=== PATIENT | male | born 1960 | race Caucasian/White ===

== ENCOUNTER → 2018-07-06 07:17 | Outpatient (CLI) | payer OTHER, SELFPAY ==
[2018-07-06 08:06] LABS: Add Manual Diff / Slide Review NO; Basophils Absolute Auto 0 /uL (0-100); Basophils Percent Auto 0.4 % (0-2); Eosinophils Absolute Auto 100 /uL (0-450); Eosinophils Percent Auto 2.6 % (2-4); Lymphocytes Absolute Auto 1400 /uL (1100-4500); Lymphocytes Percent Auto 29.5 % (25-40); Mean Corpuscular HGB Conc 33.4 % (30-36); Mean Corpuscular Hemoglobin 31.3 PG (26-34); Mean Corpuscular Volume 93.6 fL (80-100); Monocytes Absolute Auto 500 /uL (0-900); Monocytes Percent Auto 11.5 % (3-14); Neutrophils Absolute Auto 2600 /uL (1500-7000); Platelet Count 210 X10^3/uL (150-400); Red Blood Cell Count 4.81 X10^6/uL (4.5-5.9); Red Cell Distribution Width 12.7 % (11.6-14.8); White Blood Cell Count 4.6 X10^3/uL (4.5-11.0)
[2018-07-06 08:14] LABS: Alanine Aminotransferase 55 IU/L (21-72); Albumin 4.8 g/dL (3.5-5.0); Albumin Globulin Ratio 1.3 (1.0-2.8); Alkaline Phosphatase 79 U/L (38-126); Aspartate Aminotransferase 51 IU/L (17-59); BUN Creatinine Ratio 23.8 (6-22); Bilirubin Total 0.5 mg/dL (0.2-1.3); Blood Urea Nitrogen 19 mg/dL (9-20); Calcium 9.9 mg/dL (8.4-10.2); Carbon Dioxide 28 mmol/L (22-32); Chloride 102 mmol/L (98-107); Cholesterol 131 mg/dL (140-199); Estimated Glomerular Filt Rate > 60.0 mL/min (>60); Globulin 3.8 g/dL (1.7-4.1); Glucose 96 mg/dL (70-100); HDL Cholesterol 37 mg/dL (40-60); HEMOLYSIS < 15 (0-50); LDL Cholesterol Calculated 82 mg/dL (<100); Potassium 4.6 mmol/L (3.4-5.1); Sodium 139 mmol/L (137-145); Total Protein 8.6 g/dL (6.3-8.2); Triglycerides 61 mg/dL (35-150)
[2018-07-06 08:42] LABS: Prostate Specific Antigen 0.254 ng/mL (0.10-4.00)
[2018-07-06 09:32] LABS: Creatinine Urine Random 98.8 mg/dL
[2018-07-06 09:37] LABS: Microalbumin Urine Random < 0.6 mg/dL (0-1.6)
== END ==
PROVIDERS: Family Provider Family Medicine; PCP Family Medicine; Visit Provider Family Medicine
DX: E11.8 Type 2 diabetes mellitus with unspecified complications (principal); I10 Essential (primary) hypertension; I25.2 Old myocardial infarction; I25.5 Ischemic cardiomyopathy; I50.20 Unspecified systolic (congestive) heart failure; Z12.5 Encounter for screening for malignant neoplasm of prostate; Z13.0 Encounter for screening for diseases of the blood and blood-forming organs and certain disorders involving the immune mechanism; Z13.220 Encounter for screening for lipoid disorders; Z13.29 Encounter for screening for other suspected endocrine disorder
CPT/HCPCS: 36415; 80053; 80061; 82043; 82570; 84153; 84443; 85025

== ENCOUNTER → 2019-06-29 12:19 | Outpatient (CLI) | payer OTHER, SELFPAY ==
[2019-06-29 13:12] LABS: BUN Creatinine Ratio 28.8 (6-22); Blood Urea Nitrogen 23 mg/dL (9-20); Calcium 9.8 mg/dL (8.4-10.2); Carbon Dioxide 27 mmol/L (22-32); Chloride 99 mmol/L (98-107); Estimated Glomerular Filt Rate > 60.0 mL/min (>60); Glucose 95 mg/dL (80-110); HEMOLYSIS 17 (0-50); Sodium 136 mmol/L (137-145)
== END ==
PROVIDERS: Family Provider Family Medicine; PCP Family Medicine; Visit Provider Internal Medicine Cardiovascular Disease
DX: I25.5 Ischemic cardiomyopathy (principal)
CPT/HCPCS: 36415; 80048

== ENCOUNTER → 2020-05-28 11:28 | Outpatient (CLI) | payer OTHER, SELFPAY ==
[2020-05-28 12:48] LABS: Alanine Aminotransferase 39 IU/L (<50); Albumin 4.5 g/dL (3.5-5.0); Albumin Globulin Ratio 1.3 (1.0-2.8); Alkaline Phosphatase 91 U/L (38-126); Aspartate Aminotransferase 43 IU/L (17-59); BUN Creatinine Ratio 27.9 (6-22); Bilirubin Total 0.4 mg/dL (0.2-1.3); Blood Urea Nitrogen 24 mg/dL (9-20); Calcium 9.3 mg/dL (8.4-10.2); Carbon Dioxide 29 mmol/L (22-32); Chloride 99 mmol/L (98-107); Estimated Glomerular Filt Rate > 60.0 mL/min (>60); Globulin 3.4 g/dL (1.7-4.1); Glucose 98 mg/dL (80-110); HEMOLYSIS < 15 (0-50); Potassium 4.6 mmol/L (3.4-5.1); Sodium 135 mmol/L (137-145); Total Protein 7.9 g/dL (6.3-8.2)
== END ==
PROVIDERS: Family Provider Family Medicine; PCP Family Medicine; Referring Provider Family Medicine; Visit Provider Nurse Practitioner
DX: Z51.81 Encounter for therapeutic drug level monitoring (principal)
CPT/HCPCS: 36415; 80053

== ENCOUNTER → 2020-08-08 09:14 | Outpatient (CLI) | payer OTHER, SELFPAY ==
[2020-08-08 11:43] LABS: COVID19 -Nasal RAPID Negative (Negative)
== END ==
PROVIDERS: Family Provider Family Medicine; PCP Family Medicine; Visit Provider Surgery
DX: Z01.812 Encounter for preprocedural laboratory examination (principal); Z20.822 Contact with and (suspected) exposure to COVID-19
CPT/HCPCS: 87635; C9803

== ENCOUNTER 2020-08-11 07:19 | Day surgery (SDC) | payer OTHER, SELFPAY ==
[2020-08-11 07:46] VITALS: BP 124/77; PULSE 70; RESP 16; TEMP 36.7; O2SAT 100; BMI 21.2
[2020-08-11] MEDS: LACTATED RINGERS 1,000 ML 200 ML IV (07:54)
--- NOTE | 2020-08-11 08:23 | PM.HP.1 ---
History of Present Illness History of Present Illness Date Patient Seen: 08/11/20 Time Patient Seen: 08:24 Chief complaint: SCREENING COLONOSCOPY Narrative: The patient presents for colorectal sreening. He had a previous colonoscopy 5 years ago that was significant for polyps.. No personal or family history of colon cancer. On further history denies any recent gastrointestinal symptoms. No nausea, vomiting, abdominal pain, loss of appetite, unexplained weight loss, change in bowel habits, diarrhea, constipation, melena, hematochezia, or bright red blood per rectum. Patient History Medical History Essential hypertension Hx of myocardial infarction Ischemic cardiomyopathy Polyp of colon (07/08/17) Systolic CHF Family & Social History Family History Father Heart disease Stroke Mother Age: 81 Heart disease Hypertension High cholesterol Sister Age: 57 Hypertension Social History: household members spouse other boating Tobacco & Substance use: Smoking Status Never smoker alcohol intake current alcohol intake frequency a few times a week Substance Use Type does not use Meds Home Medications and Allergies Home Medications Medication Instructions Recorded Confirmed Type [MAINTENANCE C] #0 10/11/16 07/30/20 History aspirin 81 mg PO DAILY #0 07/13/17 07/30/20 History metoprolol succinate 25 mg PO BID #0 tab 07/14/18 07/30/20 History tablet,extended release 24 hr fluticasone propionate 2 spray INTRANASAL BID #1 units 01/16/19 07/30/20 Rx simvastatin 40 mg tablet 40 mg PO BEDTIME #30 tab 02/20/19 07/30/20 Rx losartan 25 mg tablet 50 mg PO DAILY tab 07/27/19 07/30/20 History sodium,potassium,mag sulfates 17.5 177 ml PO DAILY #354 ml 07/31/20 Rx gram-3.13 gram-1.6 gram oral soln acetaminophen [Tylenol] 325 mg PO QID PRN 08/11/20 08/11/20 History loratadine 10 mg PO DAILY 08/11/20 08/11/20 History phenylephrine HCl 10 mg PO Q4-6H PRN 08/11/20 08/11/20 History Allergies Allergy/AdvReac Type Severity Reaction Status Date / Time animal dander Allergy Mild Verified 08/11/20 07:31 grass pollen Allergy Mild Verified 08/11/20 07:31 house dust Allergy Mild Verified 08/11/20 07:31 Review of Systems Review of Systems ROS: Yes All systems reviewed with the patient and are negative except as otherwise documented Exam Vital Signs (past 8 hours): - 08/11/20 07:46 Temperature 98.1 F Pulse Rate 70 Respiratory Rate 16 Blood Pressure 124/77 Pulse Oximetry 100 Oxygen Delivery Method Room Air Narrative Exam Narrative: General-no acute distress, well nourished adult male HEENT-moist mucous membranes, no scleral icterus Neck-supple, no lymphadenopathy Chest- non labored respirations, clear to auscultation bilaterally Cardiac-regular rate no peripheral edema Abdomen-soft, nontender, non distended Extremities-warm, well perfused Neurological-alert and oriented, no focal deficits Assessment & Plan Assessment & Plan narrative: The patient requires colorectal screening and colonoscopy is recommended. Technical details were discussed. Risks, benefits, alternatives explained. Risks including but not limited to myocardial infarction, aspiration, bleeding, pain, missed lesion, incomplete examination, need for further radiographic studies, colonic perforation, and need for major abdominal surgery were discussed. All questions were answered to their satisfaction, and they are in agreement with this plan.
[2020-08-11] MEDS: fentaNYL 250 MCG/5 ML INJ IV (08:34)
[2020-08-11] MEDS: MIDAZOLAM 5 MG/5 ML VIAL IV (08:57)
--- NOTE | 2020-08-11 08:59 | PM.OP.ENDO ---
Operative Date/Time/Diagnoses Date of procedure: 08/11/20 Time of procedure: 08:59 Pre-op diagnosis: personal history of colonic polyps Post-op diagnosis: same Procedure & Clinicians Study performed: colonoscopy Same procedure as scheduled: Yes Indications: 59M last colonoscopy 5 yrs ago history of colonic polyps Surgeon: Lee Enriquez Procedure Notes Procedure in detail: Medications: Conscious sedation using 7mg IV midazolam and 150mcg IV of fentanyl The history and physical was performed/updated and the patient is ASA class is 2. The procedure was discussed in detail with the patient. Potential risks complications including infection, bleeding, missed diagnosis, perforation, need for surgery, and were explained. Their questions were answered and informed consent was obtained. Patient was brought to the procedure room and placed standard monitoring equipment. The patient's vital signs were monitored continuously throughout the entire procedure. Prior to starting time-out was performed. The patient was placed in the left lateral recumbent position. Procedural sedation was administered. Examination began with a thorough inspection of the perianal area there was no evidence of fissures, fistulae, external hemorrhoids or cutaneous malignancy. The colonoscopy scope was then placed into the anal canal and was advanced to the cecum, which was identified by the ileocecal valve, the appendiceal orifice and the confluence of the taenia. The scope was then slowly withdrawn examining colon thoroughly in all directions, irrigating it of any residual stool. No masses or polyps Grade 1 internal hemorrhoids The patient tolerated the procedure well. They will be discharged once criteria are met. The prep was of good/excellent quality. The withdrawl time was 7 minutes. The sedation time was 27 minutes. Specimen(s): none sent Complications: none Impression: Normal colonoscopy Post-procedure Recommendations: Colonscopy in 10 years Disposition: same day surgery
[2020-08-11 09:08] VITALS: BP 103/72; PULSE 61; RESP 15; O2SAT 96
--- NOTE | 2020-08-11 09:12 | SUR.PHASEI ---
Pt arrived, easily aroused, c/o 06/29 abdominal pain, abdomen semi-soft, pt placed on L side with knees to chest.
[2020-08-11 09:13] VITALS: BP 97/70; PULSE 61; RESP 16; TEMP 36.6; O2SAT 96
--- NOTE | 2020-08-11 09:17 | SUR.PHASEI ---
Abdomen soft, discomfort gone, pt sitting up drinking juice.
[2020-08-11 09:25] VITALS: BP 104/64; PULSE 62; RESP 17; TEMP 36.4; O2SAT 97
[2020-08-11 09:54] VITALS: BP 107/63; PULSE 63; RESP 16; TEMP 36.6; O2SAT 97
== END 2020-08-11 09:50 | disposition home or self-care (01) ==
PROVIDERS: Family Provider Family Medicine; PCP Family Medicine; Referring Provider Family Medicine; Visit Provider Surgery
PROC: 0DJD8ZZ Inspection of Lower Intestinal Tract, Via Natural or Artificial Opening Endoscopic (ICD-10-PCS; CPT 45378; principal; 2020-08-11 08:30)
DX: Z12.11 Encounter for screening for malignant neoplasm of colon (principal); Z86.010 Personal history of colon polyps; I10 Essential (primary) hypertension; I25.2 Old myocardial infarction; K64.0 First degree hemorrhoids
CPT/HCPCS: 45378; 99152; 99153; J2250; J3010

== ENCOUNTER → 2020-12-15 09:39 | Outpatient (CLI) | payer OTHER, SELFPAY ==
[2020-12-15 11:23] LABS: Cholesterol 134 mg/dL (140-199); HDL Cholesterol 48 mg/dL (40-60); LDL Cholesterol Calculated 76 mg/dL (<100); Triglycerides 51 mg/dL (35-150)
== END ==
PROVIDERS: Family Provider Family Medicine; PCP Family Medicine; Referring Provider Internal Medicine Cardiovascular Disease; Visit Provider Internal Medicine Cardiovascular Disease
DX: I25.5 Ischemic cardiomyopathy (principal)
CPT/HCPCS: 36415; 80061

== ENCOUNTER → 2021-11-18 08:15 | Outpatient (CLI) | payer OTHER, SELFPAY ==
[2021-11-18 08:56] LABS: Alanine Aminotransferase 28 IU/L (<50); Albumin 4.4 g/dL (3.5-5.0); Albumin Globulin Ratio 1.4 (1.0-2.8); Alkaline Phosphatase 71 U/L (38-126); Aspartate Aminotransferase 38 IU/L (17-59); BUN Creatinine Ratio 21.2 (6-22); Bilirubin Total 0.4 mg/dL (0.2-1.3); Blood Urea Nitrogen 18 mg/dL (9-20); Calcium 9.7 mg/dL (8.4-10.2); Carbon Dioxide 29 mmol/L (22-32); Chloride 104 mmol/L (98-107); Cholesterol 128 mg/dL (140-199); Estimated Glomerular Filt Rate > 60 mL/min (>60); Globulin 3.1 g/dL (1.7-4.1); Glucose 96 mg/dL (80-110); HDL Cholesterol 47 mg/dL (40-60); HEMOLYSIS < 15 (0-50); LDL Cholesterol Calculated 68 mg/dL (<100); Potassium 4.4 mmol/L (3.4-5.1); Sodium 138 mmol/L (137-145); Total Protein 7.5 g/dL (6.3-8.2); Triglycerides 64 mg/dL (35-150)
[2021-11-18 09:12] LABS: Creatinine Urine Random 123.6 mg/dL
[2021-11-18 09:17] LABS: Microalbumi Creatinin Ratio Ur 6.4 ug/mg CR (<30); Microalbumin Urine Random 0.8 mg/dL (0-1.6)
[2021-11-18 09:24] LABS: Prostate Specific Antigen 0.284 ng/mL (0.10-4.00)
== END ==
PROVIDERS: Family Provider Family Medicine; PCP Family Medicine; Referring Provider Family Medicine; Visit Provider Family Medicine
DX: Z12.5 Encounter for screening for malignant neoplasm of prostate (principal); I10 Essential (primary) hypertension
CPT/HCPCS: 36415; 80053; 80061; 82043; 82570; 84153

== ENCOUNTER 2022-03-12 08:15 | Outpatient (RCR) | payer OTHER, SELFPAY ==
--- NOTE | 2022-01-01 19:51 | PT.OIE ---
Current Diagnoses Muscle weakness (generalized) (01/01/22) Pain in right hand (01/01/22) Pain in left hand (01/01/22) Past Medical History (Last Reviewed 08/11/20 @ 08:24 by Lee Enriquez MD) Essential hypertension Hx of myocardial infarction Ischemic cardiomyopathy Polyp of colon (07/08/17) Systolic CHF Visit Care Team Role Provider Type Azalia Winters MD Attending Provider Physician Family Provider Primary Care Provider Referring Provider Specialty: Family Practice Address: [address] [place] [address], [facility] Email: [email or web address] Physical Therapy Initial Evaluation PT-OP-A Visit Information Start: 12/24/21 17:41 Freq: Status: Active Protocol: Document 01/01/22 08:17 LRN (Rec: 01/01/22 09:09 LRN [id number]) Out-Patient Physical Therapy Visit Information Visit Information Visit Type Initial Evaluation Visit Start Time 08:15 Visit Stop Time 09:09 Total Visit Minutes 49 Visit Number 1 Evaluation Information Evaluation Date 01/01/22 Precautions Precautions Controlled HBP, heart attack f /b open heart surgery bypass , stiff neck at times. PT-OP-B Current Condition Start: 12/24/21 17:41 Freq: Status: Active Protocol: Document 01/01/22 08:17 LRN (Rec: 01/01/22 09:09 LRN [id number]) Current Condition History of Current Condition Onset Date 2 yrs pain that worsened 6 months ago. Current Complaints Pain in fátima thumbs in the web space. History of Current Condition Fátima hand pain a couple years ago of insidious onset. Thinks it was just from general use from working in yard and around the house. 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 R hand started to have pain 9-10 months after the L hand. Does neck stretches in the morning. L hand has been getting worse. Pt reports numbness and tingling occasionally in hands on waking in morning, numbness and tingling daily driving to work. He normalizes sensation by moving fingers and move wrist. Prior Treatments and Tests None Treatment Goals Patient/Caregiver Goals Pt goal is to have program to do to help alleviate the pain and to identify and correct his problem. Pt has pain with gripping of objects. 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 Has changed way to do things to minimize the pain. Prior Functional Status Baseline Function- ADL's Independent Baseline Function- Mobility Independent Baseline Function- Other Able to bulk picker leaf blower and radha without pain or difficulty Current Functional Impairments (Reported) Functional Limitations- ADL's Denies pain with dressing, toileting. Functional Limitations- Other Thumb Pain with picking up blower or rahda if not picking it up using thumbs. Fátima thumb Pain with opening jars and coiling/uncoiling power cord for boat. Personal Factors Other Personal Factors That May Effect Spends 4-6 hrs a week doing Therapy/Recovery things in yard and in house. PT-OP-C Subjective Start: 12/24/21 17:41 Freq: Status: Active Protocol: Document 01/01/22 08:17 LRN (Rec: 01/01/22 09:09 LRN [id number]) Patient Questionnaires Quick Dash- Upper Extremity Quick Dash UE Score 20.45 Quick Dash UE Impairment 20 to 39% Impaired (Score 20- 39) OP-PT Pain Assessment Pain Assessment Grid Paper Pain Assessment Grid Completed Yes Location Right Hand Pain Location Details Dorsal and volar, web space Intensity 4 Scale Used Numeric (0 - 10) Description Aching Frequency Intermittent Pain Duration 1 hr L hand Pain Location Details Dorsal and volar, web space Intensity 4 Scale Used Numeric (0 - 10) Description Aching,Sharp Frequency Intermittent Pain Duration 1 hr Pain Aggravating Factors Activity PT-OP-H Neuro Start: 12/24/21 17:41 Freq: Status: Active Protocol: Document 01/01/22 08:17 LRN (Rec: 01/01/22 09:09 LRN [id number]) Sensation Evaluation Gross Sensation Gross Sensation WNL PT-OP-J Posture/Palpation/Skin Start: 12/24/21 17:41 Freq: Status: Active Protocol: Document 01/01/22 08:17 LRN (Rec: 01/01/22 09:09 LRN [id number]) Posture Evaluation Position Sitting Head/C-Spine Posture Forward Head T-Spine Posture Increased Kyphosis L-Spine Posture Flattened PT-OP-L Special Tests Start: 12/24/21 17:41 Freq: Status: Active Protocol: Document 01/01/22 08:17 LRN (Rec: 01/01/22 09:09 LRN [id number]) Special Tests Wrist/Hand Special Tests Grind Test Results + Left Comments Positive test for arthrosis and synovitis. Ronal's Test Results + Left, - Right Comments Indicates DeQuervain's tenosynovitis PT-OP-M Strength Start: 12/24/21 17:41 Freq: Status: Active Protocol: Document 01/01/22 08:17 LRN (Rec: 01/01/22 09:09 LRN [id number]) Elbow/Forearm Strength Elbow and Forearm Manual Muscle Testing Right Comments All muscle groups 5/5 Left Supination 3 Fair Comments All muscle groups 5/5 except as indicated above. Wrist Strength Wrist Manual Muscle Testing Right Comments All muscle groups 5/5 Left Comments All muscle groups 5/5 Finger/Thumb Strength Finger Manual Muscle Testing Right Second Comments All muscle groups 5/5 Right Thumb Comments All muscle groups 5/5 No pain with testing Left Second Comments All muscle groups 5/5 Left Thumb Flexion (fingers C8) 4+ Good+ Extension (thumb C8) 4 Good Adduction 5 Normal Abduction (fingers T1) 4 Good Hand Informatics Pharmacist/Pinch Strength Hand Dominance Hand Dominance Right Hand Strength Right Lateral Pinch (lbs) 18.5 Tip Pinch (lbs) 11 Comments Informatics Pharmacist in kgs: 32, 30, 28 (avg is 30 kg) Avg data reporting analyst for 60-64 yo is 40.7 kg Avg Pinch for 60-64 yo is 23.2 kg Left Lateral Pinch (lbs) 16 Tip Pinch (lbs) 8.5 Comments Informatics Pharmacist in kgs: 24, 26, 26 (avg is 25 kg) Discomfort in radial wrist and web space of hand. Avg data reporting analyst for 60-64 yo is 34.8 kg Avg Pinch for 60-64 yo is 22.2 kg PT-OP-Q Treatments Start: 12/24/21 17:41 Freq: Status: Active Protocol: Document 01/01/22 08:17 LRN (Rec: 01/01/22 09:09 LRN [id number]) Self-Care/Home Management Treatment Education Patient Education Home Exercise Program Other Education Discussed results of evaluation, goals, and plan of care (POC). Pt agreeable to goals and POC. Activities Self-Care/Home Management Activities I/S pt in active finger AB/AD and general flex/ext of hand to be without increasing pain. I/S pt in use ice to hands for pain and inflammation management. PT-OP-T Assessment and Plan Start: 12/24/21 17:41 Freq: Status: Active Protocol: Document 01/01/22 08:17 LRN (Rec: 01/01/22 09:09 LRN [id number]) Physical Therapy Assessment Rehab Potential Rehabilitation Potential Good Evaluation Complexity Number of Personal Factors/Comorbidities 1-2 Number of Body Systems Impaired 4 or More Clinical Presentation at Evaluation Evolving Impairments Impairments Activity Tolerance,Pain, Posture,Sensation,Soft Tissue Mobility,Strength Goals Two Impairment L > R hand pain rated 4/10 and 2/10 in dorsal & volar surface of hands. Short Term Goal (STG) Improve L & R hand ARM without pain with forearm thumb spica splint if needed for pain management. 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 LTG Duration 04/01/22 One Impairment Pt lacks self care HEP Short Term Goal (STG) Pt will be educated in use of home modalities for pain management (ice, hot/cold). STG Duration 01/15/22 Detention Goal (LTG) Pt will be educated in a self care HEP of appropriate flexibility and strengthening exercises to help alleviate the pain and to correct his problem. LTG Duration 04/01/22 Assessment Summary Assessment Pt presents with + Ronal Test of L hand (negative R hand) indicating possible DeQuervain's tenosynovitis. He also demonstrates + L CMC Grind Test indicating possible arthrosis and synovitis. The R hand demonstrated no pain with AROM or MMT, but he does complain of numbness/tingling in his hands bilaterally when driving. Due to time constraints further assessment of his hands will be needed to help identify possible indications for his sensation changes. If he does not improve in 3-4 weeks, then he would benefit from a forearm thumb spica splint. It was recommended the pt be seen for 2x/week for first 2 weeks to be educated in proper care of the hands and a home care program, but pt is only able to come in 1x/week due to his work schedule. The pt will benefit from skilled physical therapy to work towards the above stated goals. Physical Therapy Plan Frequency and Duration Frequency of Treatment 1x/Week Plan of Care Start Date 01/01/22 Plan of Care End Date 04/01/22 Therapeutic Interventions Therapeutic Interventions Home Exercise Program,Joint Mobilizations,Manual Therapy, Patient/Caregiver Education, Self-Care/Home Management,Soft Tissue Mobilization,Taping, Therapeutic Activities, Therapeutic Exercises Modalities Cold Pack/Ice Massage, Iontophoresis,Ultrasound Next Visit Focus/Plan Next Note Type Treatment Note Next Visit Plan Fátima hands Tinel & Phalen's Test, Carpel Shake, circulation test. Assess carpals. Educationi in self care using modalities (hot/cold, ice, self massage, wrap, avoid lifting/picking up heavy things, discuss possible need for splint). Strengthening of elbow/wrist without use of thumbs. K-tape, US, Iontophoresis for pain.
--- NOTE | 2022-01-01 19:51 | PT.OPPOC ---
Physical, Occupational & Speech Therapy At [facility] Current Diagnoses Muscle weakness (generalized) (01/01/22) Pain in right hand (01/01/22) Pain in left hand (01/01/22) Visit Care Team Role Provider Type Azalia Winters MD Attending Provider Physician Family Provider Primary Care Provider Referring Provider Specialty: Family Practice Address: [address] [place] [address], [place], [address] Email: [email or web address] Plan Of Care PT-OP-T Assessment and Plan Start: 12/24/21 17:41 Freq: Status: Active Protocol: Document 01/01/22 08:17 LRN (Rec: 01/01/22 09:09 LRN [id number]) Physical Therapy Assessment Rehab Potential Rehabilitation Potential Good Evaluation Complexity Number of Personal Factors/Comorbidities 1-2 Number of Body Systems Impaired 4 or More Clinical Presentation at Evaluation Evolving Impairments Impairments Activity Tolerance,Pain, Posture,Sensation,Soft Tissue Mobility,Strength Goals Two Impairment L > R hand pain rated 4/10 and 2/10 in dorsal & volar surface of hands. Short Term Goal (STG) Improve L & R hand ARM without pain with forearm thumb spica splint if needed for pain management. 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 LTG Duration 04/01/22 One Impairment Pt lacks self care HEP Short Term Goal (STG) Pt will be educated in use of home modalities for pain management (ice, hot/cold). STG Duration 01/15/22 Headwaitress Goal (LTG) Pt will be educated in a self care HEP of appropriate flexibility and strengthening exercises to help alleviate the pain and to correct his problem. LTG Duration 04/01/22 Assessment Summary Assessment Pt presents with + Ronal Test of L hand (negative R hand) indicating possible DeQuervain's tenosynovitis. He also demonstrates + L CMC Grind Test indicating possible arthrosis and synovitis. The R hand demonstrated no pain with AROM or MMT, but he does complain of numbness/tingling in his hands bilaterally when driving. Due to time constraints further assessment of his hands will be needed to help identify possible indications for his sensation changes. If he does not improve in 3-4 weeks, then he would benefit from a forearm thumb spica splint. It was recommended the pt be seen for 2x/week for first 2 weeks to be educated in proper care of the hands and a home care program, but pt is only able to come in 1x/week due to his work schedule. The pt will benefit from skilled physical therapy to work towards the above stated goals. Physical Therapy Plan Frequency and Duration Frequency of Treatment 1x/Week Plan of Care Start Date 01/01/22 Plan of Care End Date 04/01/22 Therapeutic Interventions Therapeutic Interventions Home Exercise Program,Joint Mobilizations,Manual Therapy, Patient/Caregiver Education, Self-Care/Home Management,Soft Tissue Mobilization,Taping, Therapeutic Activities, Therapeutic Exercises Modalities Cold Pack/Ice Massage, Iontophoresis,Ultrasound Next Visit Focus/Plan Next Note Type Treatment Note Next Visit Plan Robby hands Tinel & Phalen's Test, Carpel Shake, circulation test. Assess carpals. Educationi in self care using modalities (hot/cold, ice, self massage, wrap, avoid lifting/picking up heavy things, discuss possible need for splint). Strengthening of elbow/wrist without use of thumbs. K-tape, US, Iontophoresis for pain. Plan of Care Dates Plan of Care Start Date 01/01/22 Plan of Care End Date 04/01/22 Electronically Signed by: Lilia Burnham, PT 01/01/221950 If you are in agreement with this Plan of Care, please return a signed and dated copy. I have reviewed this Plan of Care and certify that the skilled therapy services above are required to meet the patient?s needs. Physician Signature Date Printed Name and Credentials Clinical Instructor Signature Printed Name and Credentials
--- NOTE | 2022-01-08 09:36 | PT.OTN ---
Current Diagnoses Muscle weakness (generalized) (01/08/22) Pain in right hand (01/08/22) Pain in left hand (01/08/22) Physical Therapy Treatment Note PT-OP-A Visit Information Start: 12/24/21 17:41 Freq: Status: Active Protocol: Document 01/08/22 08:16 LRN (Rec: 01/08/22 09:30 LRN [id number]) Out-Patient Physical Therapy Visit Information Visit Information Visit Type Treatment Note Visit Start Time 08:16 Visit Stop Time 09:04 Total Visit Minutes 48 Visit Number 2 Evaluation Information Evaluation Date 01/01/22 Precautions Precautions Controlled HBP, heart attack f /b open heart surgery bypass , stiff neck at times. I/S pt in self massage to forearm of wrist flexors. PT-OP-B Current Condition Start: 12/24/21 17:41 Freq: Status: Active Protocol: Document 01/01/22 08:17 LRN (Rec: 01/01/22 09:09 LRN [id number]) Current Condition History of Current Condition Onset Date 2 yrs pain that worsened 6 months ago. Current Complaints Pain in robby thumbs in the web space. History of Current Condition Robby hand pain a couple years ago of insidious onset. Thinks it was just from general use from working in yard and around the house. 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 R hand started to have pain 9-10 months after the L hand. Does neck stretches in the morning. L hand has been getting worse. Pt reports numbness and tingling occasionally in hands on waking in morning, numbness and tingling daily driving to work. He normalizes sensation by moving fingers and move wrist. Prior Treatments and Tests None Treatment Goals Patient/Caregiver Goals Pt goal is to have program to do to help alleviate the pain and to identify and correct his problem. Pt has pain with gripping of objects. 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 Has changed way to do things to minimize the pain. Prior Functional Status Baseline Function- ADL's Independent Baseline Function- Mobility Independent Baseline Function- Other Able to pepper picker leaf blower and radha without pain or difficulty Current Functional Impairments (Reported) Functional Limitations- ADL's Denies pain with dressing, toileting. Functional Limitations- Other Thumb Pain with picking up blower or radha if not picking it up using thumbs. Robby thumb Pain with opening jars and coiling/uncoiling power cord for boat. Personal Factors Other Personal Factors That May Effect Spends 4-6 hrs a week doing Therapy/Recovery things in yard and in house. PT-OP-C Subjective Start: 12/24/21 17:41 Freq: Status: Active Protocol: Document 01/08/22 08:16 LRN (Rec: 01/08/22 09:30 LRN [id number]) OP-PT Subjective Patient Comments Patient Comments More Sore, did more chores over the weekend. Has been doing more icing and trying to be more regular and the L hand always feels a little better. Issued & reviewed handout for Self care of pain: Hot/cold treatment and RICE treatment. Pain L wrist: start 09/27, after treatment 07/30. PT-OP-H Neuro Start: 12/24/21 17:41 Freq: Status: Active Protocol: Document 01/01/22 08:17 LRN (Rec: 01/01/22 09:09 LRN [id number]) Sensation Evaluation Gross Sensation Gross Sensation WNL PT-OP-J Posture/Palpation/Skin Start: 12/24/21 17:41 Freq: Status: Active Protocol: Document 01/01/22 08:17 LRN (Rec: 01/01/22 09:09 LRN [id number]) Posture Evaluation Position Sitting Head/C-Spine Posture Forward Head T-Spine Posture Increased Kyphosis L-Spine Posture Flattened PT-OP-L Special Tests Start: 12/24/21 17:41 Freq: Status: Active Protocol: Document 01/08/22 08:16 LRN (Rec: 01/08/22 09:30 LRN [id number]) Special Tests Elbow Special Tests Ronal's Test Results + Left, - Right PT-OP-M Strength Start: 12/24/21 17:41 Freq: Status: Active Protocol: Document 01/01/22 08:17 LRN (Rec: 01/01/22 09:09 LRN [id number]) Elbow/Forearm Strength Elbow and Forearm Manual Muscle Testing Right Comments All muscle groups 5/5 Left Supination 3 Fair Comments All muscle groups 5/5 except as indicated above. Wrist Strength Wrist Manual Muscle Testing Right Comments All muscle groups 5/5 Left Comments All muscle groups 5/5 Finger/Thumb Strength Finger Manual Muscle Testing Right Second Comments All muscle groups 5/5 Right Thumb Comments All muscle groups 5/5 No pain with testing Left Second Comments All muscle groups 5/5 Left Thumb Flexion (fingers C8) 4+ Good+ Extension (thumb C8) 4 Good Adduction 5 Normal Abduction (fingers T1) 4 Good Hand Tennis Coach/Pinch Strength Hand Dominance Hand Dominance Right Hand Strength Right Lateral Pinch (lbs) 18.5 Tip Pinch (lbs) 11 Comments Tennis Coach in kgs: 32, 30, 28 (avg is 30 kg) Avg contracts attorney for 60-64 yo is 40.7 kg Avg Pinch for 60-64 yo is 23.2 kg Left Lateral Pinch (lbs) 16 Tip Pinch (lbs) 8.5 Comments Tennis Coach in kgs: 24, 26, 26 (avg is 25 kg) Discomfort in radial wrist and web space of hand. Avg contracts attorney for 60-64 yo is 34.8 kg Avg Pinch for 60-64 yo is 22.2 kg PT-OP-Q Treatments Start: 12/24/21 17:41 Freq: Status: Active Protocol: Document 01/08/22 08:16 LRN (Rec: 01/08/22 09:30 LRN [id number]) Therapeutic Exercises Sitting Exercises Wrist Extensor stretch Sitting Exercise Name Wrist extensor stretching Side bilateral Reps/Minutes 4' Comments - Phalen's Test Wrist flexor stretching Sitting Exercise Name Wrist flexor stretching ( fingers to ceiling and lateral direction) Side bilateral Reps/Minutes 10' Comments Stretch L > R, Tinel Test negative. Manual Therapy Treatment Soft Tissue Mobilization L>R foreams ms Body Location Bilateral Wrist flexors> extensors Mobilization Type Strumming Intensity/Depth Moderate Body Position Sitting Self-Care/Home Management Treatment Education Patient Education Pain Management Other Education Discussed and Education in self care using modalities ( hot/cold, ice, self massage). Discussed & educated pt in lifting without use of thumbs. Activities Self-Care/Home Management Activities Issued & reviewed HEP: Stretch to wrist flexors ( elbow bent & straight) PT-OP-R Modalities Start: 12/24/21 17:41 Freq: Status: Active Protocol: Document 01/08/22 08:16 LRN (Rec: 01/08/22 09:30 LRN [id number]) Ultrasound Therapy Treatment R thumb ext/AB ms Treatment Duration (minutes) 4 Patient Position Sitting Coupling Medium Ultrasound Gel Applicator Size (cm2) 2 Frequency Setting (mHz) 1 Mode Setting Pulsed Duty Cycle 50% Comments Intensity range 1-1.5 W/cm2. L Thumb ext/AB Treatment Duration (minutes) 4 Patient Position Sitting Coupling Medium Ultrasound Gel Applicator Size (cm2) 2 Frequency Setting (mHz) 1 Mode Setting Pulsed Duty Cycle 50% Intensity Setting (w/cm2) 1.0 Comments Intensity range 1-1.5 W/cm2. L thymb CMC jt Treatment Duration (minutes) 4 Patient Position Sitting Coupling Medium Ultrasound Gel Applicator Size (cm2) 2 Frequency Setting (mHz) 3 Mode Setting Pulsed Duty Cycle 50% Intensity Setting (w/cm2) 0.7 PT-OP-T Assessment and Plan Start: 12/24/21 17:41 Freq: Status: Active Protocol: Document 01/08/22 08:16 LRN (Rec: 01/08/22 09:30 [facility] [id number]) Physical Therapy Assessment Goals Two Impairment L > R hand pain rated 4/10 and 2/10 in dorsal & volar surface of hands. Short Term Goal (STG) Improve L & R hand ARM without pain with forearm thumb spica splint if needed for pain management. 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 LTG Duration 04/01/22 One Impairment Pt lacks self care HEP Short Term Goal (STG) Pt will be educated in use of home modalities for pain management (ice, hot/cold). STG Duration 01/15/22 (01/08/22: MET GOAL) Associate Sales Representative Goal (LTG) Pt will be educated in a self care HEP of appropriate flexibility and strengthening exercises to help alleviate the pain and to correct his problem. (01/08/22: HEP: Stretch to wrist flexors, elbow bent & extended) LTG Duration 04/01/22 (01/08/22: Progressed) Progress Towards Goals Progress Comments Decrease L wrist pain from 4/ 10 to start to 2/10 after treatment. Assessment Summary Assessment Provocative test results: Positive for decreased circ of L radial side. Positive L Rnoal Test. Negative for Phalen's, Tinel Sign, & Carpal Shake bilaterally indicating probable non- involvement of carpal tunnel. Pt appears to understand I/S for self care pain management with RICE & hot/cold treatment . Physical Therapy Plan Frequency and Duration Frequency of Treatment 1x/Week Plan of Care Start Date 01/01/22 Plan of Care End Date 04/01/22 Next Visit Focus/Plan Next Note Type Treatment Note Next Visit Plan Assess carpals. Education in wrap, avoid lifting/picking up heavy things, discuss possible need for splint. Strengthening of elbow/wrist without use of thumbs. K-tape, US, Iontophoresis for pain.
--- NOTE | 2022-02-05 11:15 | PT.OTN ---
Current Diagnoses Muscle weakness (generalized) (02/05/22) Pain in right hand (02/05/22) Pain in left hand (02/05/22) Physical Therapy Treatment Note PT-OP-A Visit Information Start: 12/24/21 17:41 Freq: Status: Active Protocol: Document 02/05/22 08:17 LRN (Rec: 02/05/22 09:05 LRN [id number]) Out-Patient Physical Therapy Visit Information Visit Information Visit Type Treatment Note Visit Start Time 08:17 Visit Stop Time 09:00 Total Visit Minutes 43 Visit Number 3 Evaluation Information Evaluation Date 01/01/22 Precautions Precautions Controlled HBP, heart attack f /b open heart surgery bypass , stiff neck at times. I/S pt in self massage to forearm of wrist flexors. PT-OP-B Current Condition Start: 12/24/21 17:41 Freq: Status: Active Protocol: Document 01/01/22 08:17 LRN (Rec: 01/01/22 09:09 LRN [id number]) Current Condition History of Current Condition Onset Date 2 yrs pain that worsened 6 months ago. Current Complaints Pain in robby thumbs in the web space. History of Current Condition Robby hand pain a couple years ago of insidious onset. Thinks it was just from general use from working in yard and around the house. 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 R hand started to have pain 9-10 months after the L hand. Does neck stretches in the morning. L hand has been getting worse. Pt reports numbness and tingling occasionally in hands on waking in morning, numbness and tingling daily driving to work. He normalizes sensation by moving fingers and move wrist. Prior Treatments and Tests None Treatment Goals Patient/Caregiver Goals Pt goal is to have program to do to help alleviate the pain and to identify and correct his problem. Pt has pain with gripping of objects. 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 Has changed way to do things to minimize the pain. Prior Functional Status Baseline Function- ADL's Independent Baseline Function- Mobility Independent Baseline Function- Other Able to fiber picker leaf blower and radha without pain or difficulty Current Functional Impairments (Reported) Functional Limitations- ADL's Denies pain with dressing, toileting. Functional Limitations- Other Thumb Pain with picking up blower or radha if not picking it up using thumbs. Robby thumb Pain with opening jars and coiling/uncoiling power cord for boat. Personal Factors Other Personal Factors That May Effect Spends 4-6 hrs a week doing Therapy/Recovery things in yard and in house. PT-OP-C Subjective Start: 12/24/21 17:41 Freq: Status: Active Protocol: Document 02/05/22 08:17 LRN (Rec: 02/05/22 09:05 LRN [id number]) OP-PT Subjective Patient Comments Patient Comments Pt requests focusing on L hand treatment. Hadn't had pain in the R hand. States his L hand has felt better in the last couple of weeks because he has been on vacation and hasn't done much. States opening his jar or carrying a set of drawings that causes pain in his thumb at CMC jt and top of wrist. PT-OP-H Neuro Start: 12/24/21 17:41 Freq: Status: Active Protocol: Document 01/01/22 08:17 LRN (Rec: 01/01/22 09:09 LRN [id number]) Sensation Evaluation Gross Sensation Gross Sensation WNL PT-OP-J Posture/Palpation/Skin Start: 12/24/21 17:41 Freq: Status: Active Protocol: Document 01/01/22 08:17 LRN (Rec: 01/01/22 09:09 LRN [id number]) Posture Evaluation Position Sitting Head/C-Spine Posture Forward Head T-Spine Posture Increased Kyphosis L-Spine Posture Flattened PT-OP-L Special Tests Start: 12/24/21 17:41 Freq: Status: Active Protocol: Document 01/08/22 08:16 LRN (Rec: 01/08/22 09:30 LRN [id number]) Special Tests Elbow Special Tests Ronal's Test Results + Left, - Right PT-OP-M Strength Start: 12/24/21 17:41 Freq: Status: Active Protocol: Document 02/05/22 08:17 LRN (Rec: 02/05/22 09:05 LRN [id number]) Finger/Thumb Strength Finger Manual Muscle Testing Left Second Flexion (fingers C8) 5 Normal Extension (thumb C8) 5 Normal Adduction 5 Normal Abduction (fingers T1) 5 Normal Left Thumb Flexion (fingers C8) 5 Normal Extension (thumb C8) 5 Normal Adduction 5 Normal Abduction (fingers T1) 5 Normal PT-OP-Q Treatments Start: 12/24/21 17:41 Freq: Status: Active Protocol: Document 02/05/22 08:17 LRN (Rec: 02/05/22 09:05 LRN [id number]) Therapeutic Exercises Sitting Exercises Supination Sitting Exercise Name Supination strengthening Side left Reps/Minutes 15x Pronation Sitting Exercise Name Pronation strengthening Side left Reps/Minutes 15x RD Sitting Exercise Name RD strengthening Side left Reps/Minutes 15x UD Sitting Exercise Name Stretch and strengthening Side left Reps/Minutes 15x Wrist Ext strengthening Sitting Exercise Name Wrist Ext, forearm resting on plinth, elbow ~45 deg's flexed Equipment Used 2# Reps/Minutes 15x 2 Wrist flex strengthgening Sitting Exercise Name Wrist flex, forearm resting on plinth, elbow ~45 deg's flexed Side left Equipment Used 2# Reps/Minutes 15x 2 Comments Much cuing for positioning Elbow Extension Sitting Exercise Name Arm in ext with elbow extending/flexing Side left Reps/Minutes 15x 2 Comments Cuing for positioning Elbow Flex Sitting Exercise Name Strengthening Side left Equipment Used 2# Reps/Minutes 15x 2 Comments Cuing for positioning Manual Therapy Treatment Joint Mobilizations L Thumb Joint CMC jt Direction Traction & Laterally Grade II Body Position Sitting Reps/Duration 2' L wrist Joint L wrist Direction Distraction, medial glide Grade II Reps/Duration 2' L Carpals Joint Primarily Capitate on Scaphoid & Lunate, general carpal bones Direction PA/AP, Light PA at Capitate Body Position Sitting Reps/Duration 6' Self-Care/Home Management Treatment Activities Self-Care/Home Management Activities Issued & reviewed HEP: Wrist RD I/S for stretch and ex. PT-OP-R Modalities Start: 12/24/21 17:41 Freq: Status: Active Protocol: Document 01/08/22 08:16 LRN (Rec: 01/08/22 09:30 LRN [id number]) Ultrasound Therapy Treatment R thumb ext/AB ms Treatment Duration (minutes) 4 Patient Position Sitting Coupling Medium Ultrasound Gel Applicator Size (cm2) 2 Frequency Setting (mHz) 1 Mode Setting Pulsed Duty Cycle 50% Comments Intensity range 1-1.5 W/cm2. L Thumb ext/AB Treatment Duration (minutes) 4 Patient Position Sitting Coupling Medium Ultrasound Gel Applicator Size (cm2) 2 Frequency Setting (mHz) 1 Mode Setting Pulsed Duty Cycle 50% Intensity Setting (w/cm2) 1.0 Comments Intensity range 1-1.5 W/cm2. L thymb CMC jt Treatment Duration (minutes) 4 Patient Position Sitting Coupling Medium Ultrasound Gel Applicator Size (cm2) 2 Frequency Setting (mHz) 3 Mode Setting Pulsed Duty Cycle 50% Intensity Setting (w/cm2) 0.7 PT-OP-T Assessment and Plan Start: 12/24/21 17:41 Freq: Status: Active Protocol: Document 02/05/22 08:17 LRN (Rec: 02/05/22 09:05 LRN [id number]) Physical Therapy Assessment Goals Two Impairment L > R hand pain rated 4/10 and 2/10 in dorsal & volar surface of hands. Short Term Goal (STG) Improve L & R hand ARM without pain with forearm thumb spica splint if needed for pain management. 02/05/22 No c/o R hand pain. Pt had no L thumb pain with Ronal Test. 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 LTG Duration 04/01/22 One Impairment Pt lacks self care HEP Short Term Goal (STG) Pt will be educated in use of home modalities for pain management (ice, hot/cold). STG Duration 01/15/22 (01/08/22: MET GOAL) Snf Goal (LTG) Pt will be educated in a self care HEP of appropriate flexibility and strengthening exercises to help alleviate the pain and to correct his problem. 01/08/22: HEP: Stretch to wrist flexors, elbow bent & extended. 02/05/22: HEP: L wrist RD stretch/strengthening. LTG Duration 04/01/22 (02/05/22: Progressed) Progress Towards Goals Progress Comments Progressed HEP. No c/o R hand pain. Assessment Summary Assessment Special Tests L Hand: - Ronal Test, + CMC compression indicates tenosynovitis resolved, but arthritis and instability possible at CMC jt and wrist. Pt has been on vacation and has not had to use his hands as much; therefore his pain is decreased in R hand 0/10, and L hand tenderness (top of L wrist-capitate location) with gripping. Pain only with gripping while using thumb. Pt had pain at top of L wrist with wrist ext strengthening. Pt demonstrates UE strengthening for his cardiac rehab program with his wrist held in neutral; therefore stabilization at the wrist and carpals is needed. Physical Therapy Plan Frequency and Duration Frequency of Treatment 1x/Week Plan of Care Start Date 01/01/22 Plan of Care End Date 04/01/22 Next Visit Focus/Plan Next Note Type Treatment Note Next Visit Plan Stabilize L wrist and strengthen. Strengthening of elbow/wrist without use of thumbs. Avoid lifting/picking up heavy things. Modalities: K-tape, US, Iontophoresis for pain, cryotherapy.
--- NOTE | 2022-02-19 11:38 | PT.OTN ---
Current Diagnoses Muscle weakness (generalized) (02/19/22) Pain in right hand (02/19/22) Pain in left hand (02/19/22) Physical Therapy Treatment Note PT-OP-A Visit Information Start: 12/24/21 17:41 Freq: Status: Active Protocol: Document 02/19/22 08:15 LRN (Rec: 02/19/22 09:04 LRN [id number]) Out-Patient Physical Therapy Visit Information Visit Information Visit Type Treatment Note Visit Start Time 08:15 Visit Stop Time 08:59 Total Visit Minutes 44 Visit Number 4 Evaluation Information Evaluation Date 01/01/22 Precautions Precautions Controlled HBP, heart attack f /b open heart surgery bypass , stiff neck at times. I/S pt in self massage to forearm of wrist flexors. PT-OP-B Current Condition Start: 12/24/21 17:41 Freq: Status: Active Protocol: Document 01/01/22 08:17 LRN (Rec: 01/01/22 09:09 LRN [id number]) Current Condition History of Current Condition Onset Date 2 yrs pain that worsened 6 months ago. Current Complaints Pain in fátima thumbs in the web space. History of Current Condition Fátima hand pain a couple years ago of insidious onset. Thinks it was just from general use from working in yard and around the house. 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 R hand started to have pain 9-10 months after the L hand. Does neck stretches in the morning. L hand has been getting worse. Pt reports numbness and tingling occasionally in hands on waking in morning, numbness and tingling daily driving to work. He normalizes sensation by moving fingers and move wrist. Prior Treatments and Tests None Treatment Goals Patient/Caregiver Goals Pt goal is to have program to do to help alleviate the pain and to identify and correct his problem. Pt has pain with gripping of objects. 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 Has changed way to do things to minimize the pain. 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 Functional Limitations- Other Thumb Pain with picking up blower or radha if not picking it up using thumbs. Fátima thumb Pain with opening jars and coiling/uncoiling power cord for boat. Personal Factors Other Personal Factors That May Effect Spends 4-6 hrs a week doing Therapy/Recovery things in yard and in house. PT-OP-C Subjective Start: 12/24/21 17:41 Freq: Status: Active Protocol: Document 02/19/22 08:15 LRN (Rec: 02/19/22 09:04 LRN [id number]) OP-PT Subjective Patient Comments Patient Comments States his L hand is feeling better and the ice has been helping. Pain in L hand is 2- 3/10 when using thumb or jamming it into something. When picking up something the pain is in the top of the thumb instead of down at the wrist. PT-OP-H Neuro Start: 12/24/21 17:41 Freq: Status: Active Protocol: Document 01/01/22 08:17 LRN (Rec: 01/01/22 09:09 LRN [id number]) Sensation Evaluation Gross Sensation Gross Sensation WNL PT-OP-J Posture/Palpation/Skin Start: 12/24/21 17:41 Freq: Status: Active Protocol: Document 01/01/22 08:17 LRN (Rec: 01/01/22 09:09 LRN [id number]) Posture Evaluation Position Sitting Head/C-Spine Posture Forward Head T-Spine Posture Increased Kyphosis L-Spine Posture Flattened PT-OP-L Special Tests Start: 12/24/21 17:41 Freq: Status: Active Protocol: Document 01/08/22 08:16 LRN (Rec: 01/08/22 09:30 LRN [id number]) Special Tests Elbow Special Tests Ronal's Test Results + Left, - Right PT-OP-M Strength Start: 12/24/21 17:41 Freq: Status: Active Protocol: Document 02/05/22 08:17 LRN (Rec: 02/05/22 09:05 LRN [id number]) Finger/Thumb Strength Finger Manual Muscle Testing Left Second Flexion (fingers C8) 5 Normal Extension (thumb C8) 5 Normal Adduction 5 Normal Abduction (fingers T1) 5 Normal Left Thumb Flexion (fingers C8) 5 Normal Extension (thumb C8) 5 Normal Adduction 5 Normal Abduction (fingers T1) 5 Normal PT-OP-Q Treatments Start: 12/24/21 17:41 Freq: Status: Active Protocol: Document 02/19/22 08:15 LRN (Rec: 02/19/22 09:04 LRN [id number]) Therapeutic Exercises Sitting Exercises Ernesto squeezes Sitting Exercise Name Ernesto squeeze (End of 5# handwgt) Equipment Used 5# and 4# handwgt head (5# caused pain at 150 & 0 deg's flex. Reps/Minutes 5 SH x 6 with elbow flexed 90, 130, 0 deg's Comments Pain object 7 cm/2.75 in diameter. No pain 6.5 cm/2.5 in diameter. Elbow Extension Sitting Exercise Name Shoulder press up for elbow ext Side left Reps/Minutes 12x 2 Comments Cuing for positioning/core stab, scap stab Elbow Flex Sitting Exercise Name Strengthening Side left Equipment Used 2# Reps/Minutes 12x, 15x Comments Cuing for positioning/core stab Standing Exercises Scapular stab Standing Exercise Name Scap stab training for elbow curls and shoulder press Side left Reps/Minutes 23' Self-Care/Home Management Treatment Education Other Education Educated pt in slow progressive method to increase heavy cleaner strength, slowly increaing reps up to 10x3 or 15x 2, then increase width. Activities Self-Care/Home Management Activities I/S pt to do ernesto heavy cleaner strengthening ex's with objects pain 6.5 cm/2.5 in diameter and progress to larger. PT-OP-R Modalities Start: 12/24/21 17:41 Freq: Status: Active Protocol: Document 01/08/22 08:16 LRN (Rec: 01/08/22 09:30 LRN [id number]) Ultrasound Therapy Treatment R thumb ext/AB ms Treatment Duration (minutes) 4 Patient Position Sitting Coupling Medium Ultrasound Gel Applicator Size (cm2) 2 Frequency Setting (mHz) 1 Mode Setting Pulsed Duty Cycle 50% Comments Intensity range 1-1.5 W/cm2. L Thumb ext/AB Treatment Duration (minutes) 4 Patient Position Sitting Coupling Medium Ultrasound Gel Applicator Size (cm2) 2 Frequency Setting (mHz) 1 Mode Setting Pulsed Duty Cycle 50% Intensity Setting (w/cm2) 1.0 Comments Intensity range 1-1.5 W/cm2. L thymb CMC jt Treatment Duration (minutes) 4 Patient Position Sitting Coupling Medium Ultrasound Gel Applicator Size (cm2) 2 Frequency Setting (mHz) 3 Mode Setting Pulsed Duty Cycle 50% Intensity Setting (w/cm2) 0.7 PT-OP-T Assessment and Plan Start: 12/24/21 17:41 Freq: Status: Active Protocol: Document 02/19/22 08:15 LRN (Rec: 02/19/22 09:04 LRN [id number]) Physical Therapy Assessment Goals Two Impairment L > R hand pain rated 4/10 and 2/10 in dorsal & volar surface of hands. Short Term Goal (STG) Improve L & R hand ARM without pain with forearm thumb spica splint if needed for pain management. 02/05/22 No c/o R hand pain. Pt had no L thumb pain with Ronal Test. 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 LTG Duration 04/01/22 One Impairment Pt lacks self care HEP Short Term Goal (STG) Pt will be educated in use of home modalities for pain management (ice, hot/cold). STG Duration 01/15/22 (01/08/22: MET GOAL) Branch Office Administrator Goal (LTG) Pt will be educated in a self care HEP of appropriate flexibility and strengthening exercises to help alleviate the pain and to correct his problem. 01/08/22: HEP: Stretch to wrist flexors, elbow bent & extended. 02/05/22: HEP: L wrist RD stretch/strengthening. LTG Duration 04/01/22 (02/05/22: Progressed) Assessment Summary Assessment Pain with gripping with L thumb in 40 deg's of AB, 7 cm/ 2.75 in diameter. No pain with 6.5 cm/2.5 in diameter object. Pt able to do strengthening with hand wgts at home using thumb to heavy cleaner without pain. Physical Therapy Plan Frequency and Duration Frequency of Treatment 1x/Week Plan of Care Start Date 01/01/22 Plan of Care End Date 04/01/22 Next Visit Focus/Plan Next Note Type Treatment Note Next Visit Plan Assess response to progression of heavy cleaner strength width tolerance. Assess progress of scapular/ core stab with bicep curl and shoulder press. Stabilize L wrist and strengthen. Strengthening of elbow/wrist with use of thumbs. Next vist: Progress lifting/ picking up heavy things. Modalities: K-tape, US, Iontophoresis for pain, cryotherapy.
--- NOTE | 2022-02-26 09:08 | PT.OTN ---
Current Diagnoses Muscle weakness (generalized) (02/26/22) Pain in right hand (02/26/22) Pain in left hand (02/26/22) Physical Therapy Treatment Note PT-OP-A Visit Information Start: 12/24/21 17:41 Freq: Status: Active Protocol: Document 02/26/22 08:17 LRN (Rec: 02/26/22 09:07 LRN [id number]) Out-Patient Physical Therapy Visit Information Visit Information Visit Type Treatment Note Visit Start Time 08:17 Visit Stop Time 08:57 Total Visit Minutes 40 Visit Number 5 Evaluation Information Evaluation Date 01/01/22 Precautions Precautions Controlled HBP, heart attack f /b open heart surgery bypass , stiff neck at times. I/S pt in self massage to forearm of wrist flexors. PT-OP-B Current Condition Start: 12/24/21 17:41 Freq: Status: Active Protocol: Document 01/01/22 08:17 LRN (Rec: 01/01/22 09:09 LRN [id number]) Current Condition History of Current Condition Onset Date 2 yrs pain that worsened 6 months ago. Current Complaints Pain in fátima thumbs in the web space. History of Current Condition Fátima hand pain a couple years ago of insidious onset. Thinks it was just from general use from working in yard and around the house. 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 R hand started to have pain 9-10 months after the L hand. Does neck stretches in the morning. L hand has been getting worse. Pt reports numbness and tingling occasionally in hands on waking in morning, numbness and tingling daily driving to work. He normalizes sensation by moving fingers and move wrist. Prior Treatments and Tests None Treatment Goals Patient/Caregiver Goals Pt goal is to have program to do to help alleviate the pain and to identify and correct his problem. Pt has pain with gripping of objects. 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 Has changed way to do things to minimize the pain. 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 Functional Limitations- Other Thumb Pain with picking up blower or radha if not picking it up using thumbs. Fátima thumb Pain with opening jars and coiling/uncoiling power cord for boat. Personal Factors Other Personal Factors That May Effect Spends 4-6 hrs a week doing Therapy/Recovery things in yard and in house. PT-OP-C Subjective Start: 12/24/21 17:41 Freq: Status: Active Protocol: Document 02/26/22 08:17 LRN (Rec: 02/26/22 09:07 LRN [id number]) OP-PT Subjective Patient Comments Patient Comments Went back to work and is a little sore in the L thumb/ index finger due to gripping. Pain is less, 2/10. Constant the last 3-4 days. After last session had to ice when got home. Has reduced wgts with ex at home. PT-OP-H Neuro Start: 12/24/21 17:41 Freq: Status: Active Protocol: Document 01/01/22 08:17 LRN (Rec: 01/01/22 09:09 LRN [id number]) Sensation Evaluation Gross Sensation Gross Sensation WNL PT-OP-J Posture/Palpation/Skin Start: 12/24/21 17:41 Freq: Status: Active Protocol: Document 01/01/22 08:17 LRN (Rec: 01/01/22 09:09 LRN [id number]) Posture Evaluation Position Sitting Head/C-Spine Posture Forward Head T-Spine Posture Increased Kyphosis L-Spine Posture Flattened PT-OP-L Special Tests Start: 12/24/21 17:41 Freq: Status: Active Protocol: Document 01/08/22 08:16 LRN (Rec: 01/08/22 09:30 LRN [id number]) Special Tests Elbow Special Tests Ronal's Test Results + Left, - Right PT-OP-M Strength Start: 12/24/21 17:41 Freq: Status: Active Protocol: Document 02/05/22 08:17 LRN (Rec: 02/05/22 09:05 LRN [id number]) Finger/Thumb Strength Finger Manual Muscle Testing Left Second Flexion (fingers C8) 5 Normal Extension (thumb C8) 5 Normal Adduction 5 Normal Abduction (fingers T1) 5 Normal Left Thumb Flexion (fingers C8) 5 Normal Extension (thumb C8) 5 Normal Adduction 5 Normal Abduction (fingers T1) 5 Normal PT-OP-Q Treatments Start: 12/24/21 17:41 Freq: Status: Active Protocol: Document 02/26/22 08:17 LRN (Rec: 02/26/22 09:07 LRN [id number]) Therapeutic Exercises Sitting Exercises Palmar ABD Sitting Exercise Name Isotonic ms re-ed of palmar ABD Side left Reps/Minutes 13' Comments Much assist for: Lift of thumb in C-position Index finger AB Sitting Exercise Name Index finger AB Side left Equipment Used Rubber band Reps/Minutes 30x Ernesto squeezes Sitting Exercise Name Ernesto squeeze (End of 5# handwgt) Equipment Used 5# and 4# handwgt head (5# caused pain at 150 & 0 deg's flex. Reps/Minutes 5 SH x 6 with elbow flexed 90, 50, 0 deg's Comments Pain object 7 cm/2.75 in diameter. No pain 6.5 cm/2.5 in diameter. Manual Therapy Treatment Soft Tissue Mobilization L hand web space Body Location L hand web space Mobilization Type Strumming Intensity/Depth Moderate Body Position Sitting Self-Care/Home Management Treatment Education Other Education Pt education and extended discussion in spica splint with review online of different styles of splints, and discussion of comfort cool CMC restriction over-the- counter splint. Recommended pt try least restrictive for now, but might need more restrictive if not able to minimize pain. Activities Self-Care/Home Management Activities Issued handouts for Thumb spica splint and recommended comfort cool thumb CMC Restriction splint. PT-OP-R Modalities Start: 12/24/21 17:41 Freq: Status: Active Protocol: Document 01/08/22 08:16 LRN (Rec: 01/08/22 09:30 LRN [id number]) Ultrasound Therapy Treatment R thumb ext/AB ms Treatment Duration (minutes) 4 Patient Position Sitting Coupling Medium Ultrasound Gel Applicator Size (cm2) 2 Frequency Setting (mHz) 1 Mode Setting Pulsed Duty Cycle 50% Comments Intensity range 1-1.5 W/cm2. L Thumb ext/AB Treatment Duration (minutes) 4 Patient Position Sitting Coupling Medium Ultrasound Gel Applicator Size (cm2) 2 Frequency Setting (mHz) 1 Mode Setting Pulsed Duty Cycle 50% Intensity Setting (w/cm2) 1.0 Comments Intensity range 1-1.5 W/cm2. L thymb CMC jt Treatment Duration (minutes) 4 Patient Position Sitting Coupling Medium Ultrasound Gel Applicator Size (cm2) 2 Frequency Setting (mHz) 3 Mode Setting Pulsed Duty Cycle 50% Intensity Setting (w/cm2) 0.7 PT-OP-T Assessment and Plan Start: 12/24/21 17:41 Freq: Status: Active Protocol: Document 02/26/22 08:17 LRN (Rec: 02/26/22 09:07 LRN [id number]) Physical Therapy Assessment Goals Two Impairment L > R hand pain rated 4/10 and 2/10 in dorsal & volar surface of hands. Short Term Goal (STG) Improve L & R hand ARM without pain with forearm thumb spica splint if needed for pain management. 02/05/22 No c/o R hand pain. Pt had no L thumb pain with Ronal Test. 02/26/22: Recommended L thumb spica splint or Comfort cool Thumb CMC restriction splint. 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 LTG Duration 04/01/22 One Impairment Pt lacks self care HEP Short Term Goal (STG) Pt will be educated in use of home modalities for pain management (ice, hot/cold). STG Duration 01/15/22 (01/08/22: MET GOAL) Retail Merchandising Manager Goal (LTG) Pt will be educated in a self care HEP of appropriate flexibility and strengthening exercises to help alleviate the pain and to correct his problem. 01/08/22: HEP: Stretch to wrist flexors, elbow bent & extended. 02/05/22: HEP: L wrist RD stretch/strengthening. 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 Incr'd L hand pain with gripping L 5# handwgt head immediately, but not with 4# ( 6.5cm/2.5 elise). 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 Physical Therapy Plan Frequency and Duration Frequency of Treatment 1x/Week Plan of Care Start Date 01/01/22 Plan of Care End Date 04/01/22 Next Visit Focus/Plan Next Note Type Treatment Note Next Visit Plan Possible DC to HEP if no change. Review modification of L hand gripping. Assess response to use of L CMC thumb splint. Review progress of scapular/ core stab with bicep curl and shoulder press. POC: Stabilize L wrist and Strengthening of elbow/wrist with use of thumbs in protective manner. Modalities: K-tape, US, Iontophoresis for pain, cryotherapy.
--- NOTE | 2022-03-12 12:35 | PT.OTN ---
Current Diagnoses Muscle weakness (generalized) (03/12/22) Pain in right hand (03/12/22) Pain in left hand (03/12/22) Physical Therapy Treatment Note PT-OP-A Visit Information Start: 12/24/21 17:41 Freq: Status: Active Protocol: Document 03/12/22 08:15 LRN (Rec: 03/12/22 09:02 LRN [id number]) Out-Patient Physical Therapy Visit Information Visit Information Visit Type Treatment Note Visit Start Time 08:15 Visit Stop Time 08:58 Total Visit Minutes 43 Visit Number 6 Evaluation Information Evaluation Date 01/01/22 Precautions Precautions Controlled HBP, heart attack f /b open heart surgery bypass , stiff neck at times. I/S pt in self massage to forearm of wrist flexors. PT-OP-B Current Condition Start: 12/24/21 17:41 Freq: Status: Active Protocol: Document 01/01/22 08:17 LRN (Rec: 01/01/22 09:09 LRN [id number]) Current Condition History of Current Condition Onset Date 2 yrs pain that worsened 6 months ago. Current Complaints Pain in fátima thumbs in the web space. History of Current Condition Fátima hand pain a couple years ago of insidious onset. Thinks it was just from general use from working in yard and around the house. 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 R hand started to have pain 9-10 months after the L hand. Does neck stretches in the morning. L hand has been getting worse. Pt reports numbness and tingling occasionally in hands on waking in morning, numbness and tingling daily driving to work. He normalizes sensation by moving fingers and move wrist. Prior Treatments and Tests None Treatment Goals Patient/Caregiver Goals Pt goal is to have program to do to help alleviate the pain and to identify and correct his problem. Pt has pain with gripping of objects. 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 Has changed way to do things to minimize the pain. Prior Functional Status Baseline Function- ADL's Independent Baseline Function- Mobility Independent Baseline Function- Other Able to sampler pickup leaf blower and radha without pain or difficulty Current Functional Impairments (Reported) Functional Limitations- ADL's Denies pain with dressing, toileting. Functional Limitations- Other Thumb Pain with picking up blower or radha if not picking it up using thumbs. Fátima thumb Pain with opening jars and coiling/uncoiling power cord for boat. Personal Factors Other Personal Factors That May Effect Spends 4-6 hrs a week doing Therapy/Recovery things in yard and in house. PT-OP-C Subjective Start: 12/24/21 17:41 Freq: Status: Active Protocol: Document 03/12/22 08:15 LRN (Rec: 03/12/22 09:02 LRN [id number]) OP-PT Subjective Patient Comments Patient Comments No change good or bad. No longer getting numbness in the L hand with driving. Patient Questionnaires Quick Dash- Upper Extremity Quick Dash UE Score 2.27 Quick Dash UE Impairment 1 to 19% Impaired (Score 1-19) PT-OP-H Neuro Start: 12/24/21 17:41 Freq: Status: Active Protocol: Document 01/01/22 08:17 LRN (Rec: 01/01/22 09:09 LRN [id number]) Sensation Evaluation Gross Sensation Gross Sensation WNL PT-OP-J Posture/Palpation/Skin Start: 12/24/21 17:41 Freq: Status: Active Protocol: Document 01/01/22 08:17 LRN (Rec: 01/01/22 09:09 LRN [id number]) Posture Evaluation Position Sitting Head/C-Spine Posture Forward Head T-Spine Posture Increased Kyphosis L-Spine Posture Flattened PT-OP-L Special Tests Start: 12/24/21 17:41 Freq: Status: Active Protocol: Document 01/08/22 08:16 LRN (Rec: 01/08/22 09:30 LRN [id number]) Special Tests Elbow Special Tests Ronal's Test Results + Left, - Right PT-OP-M Strength Start: 12/24/21 17:41 Freq: Status: Active Protocol: Document 02/05/22 08:17 LRN (Rec: 02/05/22 09:05 LRN [id number]) Finger/Thumb Strength Finger Manual Muscle Testing Left Second Flexion (fingers C8) 5 Normal Extension (thumb C8) 5 Normal Adduction 5 Normal Abduction (fingers T1) 5 Normal Left Thumb Flexion (fingers C8) 5 Normal Extension (thumb C8) 5 Normal Adduction 5 Normal Abduction (fingers T1) 5 Normal PT-OP-Q Treatments Start: 12/24/21 17:41 Freq: Status: Active Protocol: Document 03/12/22 08:15 LRN (Rec: 03/12/22 09:02 LRN [id number]) Therapeutic Exercises Sitting Exercises Index finger AB Sitting Exercise Name Verbal review Ernesto squeezes Sitting Exercise Name Verbal review Supination Sitting Exercise Name Supination strengthening Side left Equipment Used 3# Reps/Minutes 30x Pronation Sitting Exercise Name Pronation strengthening Side left Equipment Used 3# Reps/Minutes 30x RD Sitting Exercise Name RD strengthening Side left Equipment Used 3# Reps/Minutes 10x 3 UD Sitting Exercise Name Stretch and strengthening Side left Equipment Used 3# Reps/Minutes 10x 3 Wrist Ext strengthening Sitting Exercise Name Wrist Ext, forearm resting on plinth, elbow ~90deg's flexed Equipment Used 3# Reps/Minutes 15x 2 Wrist flex strengthgening Sitting Exercise Name Wrist flex, forearm resting on plinth, elbow ~90 deg's flexed Side left Equipment Used 3# Reps/Minutes 15x 2 Elbow Extension Sitting Exercise Name Tricep ext Side left Equipment Used 3# Reps/Minutes 30x Comments Cuing for positioning/core stab Elbow Flex Sitting Exercise Name Strengthening Side left Equipment Used 3# Reps/Minutes 30x Comments Cuing for positioning/core stab Wrist Extensor stretch Sitting Exercise Name Wrist extensor stretching Side bilateral Reps/Minutes 3' Self-Care/Home Management Treatment Education Other Education Discussed at length use of spica splint and pain management treatment. Discussed goals and plan of care, pt agreeable to discharge to HEP and will follow up with referring physician. Activities Self-Care/Home Management Activities Issued HEP: for wrist sup/ pron, UD, RD and elbow flex, ext strengthening PT-OP-R Modalities Start: 12/24/21 17:41 Freq: Status: Active Protocol: Document 01/08/22 08:16 LRN (Rec: 01/08/22 09:30 LRN [id number]) Ultrasound Therapy Treatment R thumb ext/AB ms Treatment Duration (minutes) 4 Patient Position Sitting Coupling Medium Ultrasound Gel Applicator Size (cm2) 2 Frequency Setting (mHz) 1 Mode Setting Pulsed Duty Cycle 50% Comments Intensity range 1-1.5 W/cm2. L Thumb ext/AB Treatment Duration (minutes) 4 Patient Position Sitting Coupling Medium Ultrasound Gel Applicator Size (cm2) 2 Frequency Setting (mHz) 1 Mode Setting Pulsed Duty Cycle 50% Intensity Setting (w/cm2) 1.0 Comments Intensity range 1-1.5 W/cm2. L thymb CMC jt Treatment Duration (minutes) 4 Patient Position Sitting Coupling Medium Ultrasound Gel Applicator Size (cm2) 2 Frequency Setting (mHz) 3 Mode Setting Pulsed Duty Cycle 50% Intensity Setting (w/cm2) 0.7 PT-OP-T Assessment and Plan Start: 12/24/21 17:41 Freq: Status: Active Protocol: Document 03/12/22 08:15 LRN (Rec: 03/12/22 09:02 LRN [id number]) Physical Therapy Assessment Goals Two Impairment L > R hand pain rated 4/10 and 2/10 in dorsal & volar surface of hands. Short Term Goal (STG) Improve L & R hand ARM without pain with forearm thumb spica splint if needed for pain management. 02/05/22 No c/o R hand pain. Pt had no L thumb pain with Ronal Test. 02/26/22: Recommended L thumb spica splint or Comfort cool Thumb CMC restriction splint. 03/12/22: L thumb pain rated 2 /10). 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 (03/12/22: L hand thumb pain rated 2/10 when using his shop blower and pruning radha) LTG Duration 04/01/22 (03/12/22: Improved, NOT MET GOAL) One Impairment Pt lacks self care HEP Short Term Goal (STG) Pt will be educated in use of home modalities for pain management (ice, hot/cold). STG Duration 01/15/22 (01/08/22: MET GOAL) Prison Goal (LTG) Pt will be educated in a self care HEP of appropriate flexibility and strengthening exercises to help alleviate the pain and to correct his problem. 01/08/22: HEP: Stretch to wrist flexors, elbow bent & extended. 02/05/22: HEP: L wrist RD stretch/strengthening. 02/26/22: HEP: Palmar AB (H/O) & index finger AB strengthening LTG Duration 04/01/22 (03/12/22: MET GOAL) Assessment Summary Assessment Pt using spica splint when using L hand, but has found no change in his pain, except that it became localized to his thumb. Overall the pt has improved with pain only in his L hand and localized to the thumb. He is able to drive without onset of numbness and tingling. His pain has decreased 50% (from 4 /10 to 2/10 pain) when using his shop blower and pruning radha. We discussed his goals and plan of care, and pt is agreeable to discharge to HEP and will follow up with referring physician if he feels further treatment is needed for his L thumb pain. The pt has been placed on a self care HEP of strengthening and ROM ex's and self care for pain management. He is ready for self care. Physical Therapy Plan Discharge Physical Therapy Discharge Reasons Plateau in Progress Discharge Comments Recommended that pt return to referring physician for follow up care and options for further care if needed.
== END 2022-03-16 11:53 | disposition home or self-care (01) ==
LOC: PHYS 08:15
PROVIDERS: Family Provider Family Medicine; PCP Family Medicine; Referring Provider Family Medicine; Visit Provider Family Medicine
DX: M79.641 Pain in right hand (principal); M79.642 Pain in left hand; M62.81 Muscle weakness (generalized)
CPT/HCPCS: 97110; 97140; 97162; 97535

== ENCOUNTER → 2022-04-29 09:18 | Outpatient (CLI) | payer OTHER, SELFPAY ==
[2022-04-29 10:46] LABS: Add Manual Diff / Slide Review NO; Basophils Absolute Auto 0 /uL (0-100); Basophils Percent Auto 0.4 % (0-2); Eosinophils Absolute Auto 100 /uL (0-450); Eosinophils Percent Auto 2.8 % (2-4); Hematocrit 36.4 % (41-53); Hemoglobin 12.5 g/dL (13.5-17.5); Lymphocytes Absolute Auto 1300 /uL (1100-4500); Lymphocytes Percent Auto 31.5 % (25-40); Mean Corpuscular HGB Conc 34.3 % (30-36); Mean Corpuscular Hemoglobin 31.1 PG (26-34); Mean Corpuscular Volume 90.9 fL (80-100); Monocytes Absolute Auto 500 /uL (0-900); Monocytes Percent Auto 12.2 % (3-14); Neutrophils Absolute Auto 2100 /uL (1500-7000); Neutrophils Percent Auto 53.1 % (50-75); Platelet Count 227 X10^3/uL (150-400); Red Blood Cell Count 4.01 X10^6/uL (4.5-5.9); Red Cell Distribution Width 13.4 % (11.6-14.8)
[2022-04-29 11:18] LABS: Alanine Aminotransferase 36 IU/L (<50); Albumin 4.2 g/dL (3.5-5.0); Albumin Globulin Ratio 1.3 (1.0-2.8); Alkaline Phosphatase 95 U/L (38-126); Aspartate Aminotransferase 40 IU/L (17-59); BUN Creatinine Ratio 30.1 (6-22); Bilirubin Total 0.3 mg/dL (0.2-1.3); Blood Urea Nitrogen 25 mg/dL (9-20); Calcium 9.1 mg/dL (8.4-10.2); Carbon Dioxide 25 mmol/L (22-32); Chloride 97 mmol/L (98-107); Estimated Glomerular Filt Rate > 60 mL/min (>60); Globulin 3.2 g/dL (1.7-4.1); Glucose 82 mg/dL (80-110); HEMOLYSIS 23 (0-50); Potassium 5.1 mmol/L (3.4-5.1); Sodium 134 mmol/L (137-145); Total Protein 7.4 g/dL (6.3-8.2)
== END ==
PROVIDERS: Family Provider Family Medicine; PCP Family Medicine; Referring Provider Physician Assistant; Visit Provider Physician Assistant
DX: R11.10 Vomiting, unspecified (principal)
CPT/HCPCS: 36415; 80053; 85025

== ENCOUNTER → 2022-06-02 12:02 | Outpatient (CLI) | payer OTHER, SELFPAY ==
--- NOTE | 2022-06-02 12:03 | DI.RAD.S_ITS ---
PROCEDURE: FL BARIUM SWALLOW INDICATIONS: Episodic vomiting COMPARISON: [facility], CR, CHEST 1 VIEW, 10/11/2016, 3:12. FINDINGS: Function: There were several episodes of tertiary contractions resulting in delayed and occasional retrograde flow ingested oral contrast. No elicited gastroesophageal reflux. There is normal transit of a calibrated barium tablet through the esophagus into the stomach. Morphology: Air-contrast images demonstrate normal mucosal morphology. Moderate-sized hiatal hernia is identified. Single contrast views show no esophageal strictures, extrinsic mass effects, or diverticula. Limited images of the stomach demonstrate normal appearance. IMPRESSION: 1. Multiple episodes of tertiary contractions/esophageal spasms. No elicited gastroesophageal reflux. 2. Moderate sized hiatal hernia. 3. Otherwise, unremarkable barium swallow study Dictated by: Alvaro Patel M.D. on 06/02/2022 at 21:32 Approved by: Alvaro Patel M.D. on 06/02/2022 at 21:37
--- NOTE | 2022-06-02 12:03 | DI.US.S_ITS ---
PROCEDURE: US ABDOMEN COMPLETE INDICATIONS: Episodic vomiting TECHNIQUE: Real-time scanning was performed of the abdominal and retroperitoneal organs, with image documentation. COMPARISON: None. FINDINGS: Liver: Liver is normal in size and homogeneous in echotexture. Gallbladder: There is no gallstone. No gallbladder wall thickening or pericholecystic fluid. No sonographic Cleaning sign. Biliary ducts: Intrahepatic bile ducts are non-dilated. Extrahepatic bile duct caliber measures 5.2 mm. Normal is 6-7 mm or less in diameter, or 10 mm or less post-cholecystectomy. Pancreas: Visualized portions of the pancreas are sonographically normal. Spleen: Spleen is normal in size and homogeneous in echotexture. Kidneys: Kidneys are normal in size and echotexture. Right kidney measures 10.5 cm long; left kidney measures 12.1 cm long. No hydronephrosis or nephrolithiasis. No solid masses. Aorta: Visualized aorta is normal in caliber at less than 3 cm. Iliacs: Proximal common iliac arteries are normal in caliber at less than 2.5 cm. IVC: Intrahepatic inferior vena cava is patent. Miscellaneous: No free abdominal fluid. IMPRESSION: Unremarkable ultrasound examination of abdomen. Dictated by: Abelardo Still M.D. on 06/02/2022 at 16:41 Approved by: Abelardo Still M.D. on 06/02/2022 at 16:42
== END ==
PROVIDERS: Family Provider Family Medicine; PCP Family Medicine; Referring Provider Physician Assistant; Visit Provider Physician Assistant
DX: R11.10 Vomiting, unspecified (principal); K44.9 Diaphragmatic hernia without obstruction or gangrene
CPT/HCPCS: 74220; 76700

== ENCOUNTER → 2022-07-29 12:55 | Outpatient (CLI) | payer OTHER, SELFPAY ==
[2022-07-29 14:34] LABS: Add Manual Diff / Slide Review NO; Basophils Absolute Auto 0 /uL (0-100); Basophils Percent Auto 0.4 % (0-2); Eosinophils Absolute Auto 100 /uL (0-450); Eosinophils Percent Auto 1.4 % (2-4); Hematocrit 37.9 % (41-53); Hemoglobin 12.7 g/dL (13.5-17.5); Lymphocytes Absolute Auto 1700 /uL (1100-4500); Mean Corpuscular HGB Conc 33.4 % (30-36); Mean Corpuscular Hemoglobin 30.2 PG (26-34); Mean Corpuscular Volume 90.3 fL (80-100); Monocytes Absolute Auto 700 /uL (0-900); Monocytes Percent Auto 11.6 % (3-14); Neutrophils Absolute Auto 3600 /uL (1500-7000); Neutrophils Percent Auto 58.6 % (50-75); Platelet Count 208 X10^3/uL (150-400); Red Blood Cell Count 4.19 X10^6/uL (4.5-5.9); Red Cell Distribution Width 13.9 % (11.6-14.8); White Blood Cell Count 6.2 X10^3/uL (4.5-11.0)
== END ==
PROVIDERS: Family Provider Family Medicine; PCP Family Medicine; Referring Provider Family Medicine; Visit Provider Family Medicine
DX: I10 Essential (primary) hypertension (principal)
CPT/HCPCS: 36415; 85025

== ENCOUNTER 2022-10-25 14:15 | Day surgery (SDC) | payer OTHER, SELFPAY ==
--- NOTE | 2022-10-25 | PATH_ITS ---
[facility] Accession Number: [id number] No. of containers..01 Tissue . 01 Material submitted: . gastrointestinal site - GASTRIC EROSION . 01 Diagnosis: Gastric Erosion, Biopsy: Gastric mucosa with minimal chronic nonspecific inflammation. No Helicobacter pylori organisms identified on immunohistochemical evaluation. No intestinal metaplasia, dysplasia, or malignancy. [facility] 10/28/2022 1155 Local . 01 Electronically signed: . Iman Ibarra MD, Pathologist NPI- [id number] . 01 Gross description: . GASTRIC EROSION: Received in formalin are 3 fragment(s) of mary, soft tissue measuring 0.2 x 0.2 x 0.2 cm to 0.1 x 0.1 x 0.1 cm submitted entirely in 1 cassette(s) /[facility] 10/26/2022 1651 Local . 01 Microscopic: . An immunohistochemical stain was performed to evaluate for Helicobacter organisms and is negative. The control stain showed appropriate reactivity. . . * This test was developed and its performance characteristics determined by [facility]. It has not been cleared or approved by the U.S. Food and Drug Administration. The FDA has determined that such clearance or approval is not necessary. This test is used for clinical purposes. It should not be regarded as investigational or for research. . 01 Pathologist provided ICD-10: K29.30 . 01 CPT . 559110, H91609 Specimen Comment: A courtesy copy of this report has been sent to [phone] Performed at: 01 [facility] [address] [place] [address], [place], [place] [id number] MD Jesus Sullivan MD Phone: [phone]
[2022-10-25] MEDS: LACTATED RINGERS 1,000 ML 100 ML IV (14:26)
[2022-10-25 14:42] VITALS: BP 140/88; PULSE 67; RESP 16; TEMP 36.4; O2SAT 100; BMI 21.2
--- NOTE | 2022-10-25 15:05 | P.HP_ITS ---
History of Present Illness History of Present Illness Date Patient Seen: 10/25/22 Time Patient Seen: 15:05 Chief complaint: EGD w/poss bx Narrative: I reviewed my recent office note. The patient did try a 2 week course of omeprazole and it seemed to ameliorate his symptoms to some degree. He has since discontinued the PPI. 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 water heater temp set < 120 deg: No working smoke detector in home: Yes fire extinguisher in home: Yes carbon monox detector in home: No firearms in home: Yes Smoking Status: Never smoker alcohol intake: current during the past year weight has: remained stable well-balanced diet: daily or most days daily servings fruits/ve or more times/day caffeine: Yes eating out: rarely or never Type(s) of exercise: walking and weight lifting frequency: 3-4 times per week duration: 60-90 minutes/day Meds Home Medications and Allergies Home Medications Medication Instructions Recorded Confirmed Type aspirin 81 mg tablet,delayed 81 mg PO DAILY ##0 07/13/17 10/25/22 History release metoprolol succinate 25 mg 25 mg PO BID #0 tabs 07/14/18 10/25/22 History tablet,extended release 24 hr (Toprol XL) fluticasone propionate 50 2 spray intranasal BID #1 units 01/16/19 10/25/22 Rx mcg/actuation nasal spray,suspension simvastatin 40 mg tablet 40 mg PO BEDTIME #30 tabs 02/20/19 10/25/22 Rx losartan 25 mg tablet 50 mg PO DAILY 07/27/19 04/29/22 History acetaminophen 325 mg tablet 325 mg PO QID PRN Pain, Mild 08/11/20 10/25/22 History (Tylenol) Allergies Allergy/AdvReac Type Severity Reaction Status Date / Time animal dander Allergy Mild Verified 10/25/22 14:38 grass pollen Allergy Mild Verified 10/25/22 14:38 house dust Allergy Mild Verified 10/25/22 14:38 Review of Systems Review of Systems ROS: Yes All systems reviewed with the patient and are negative except as o therwise documented Exam Vital Signs (past 8 hours): - 10/25/22 14:42 Temperature 97.6 F Pulse Rate 67 Respiratory Rate 16 Blood Pressure 140/88 Pulse Oximetry 100 Oxygen Delivery Method Room Air Oxygen Delivery Method Room Air Const General: cooperative HENMT Head: normal to inspection Eyes General: appearance normal, both eyes and all related structures Neck Neck: normal visual inspection Chest Chest: normal inspection of the chest Resp Effort & Inspection: normal respiratory effort Cardio Rate: regular rate GI Inspection: normal to inspection Skin General: no rashes or lesions noted Neuro General: patient alert and patient awake Extrem General: normal to inspection and no pedal edema Psych Appearance: grossly normal Assessment & Plan Assessment & Plan narrative: 61-year-old male with symptoms of nausea vomiting substernal chest discomfort and a known hiatal hernia. Diagnostic EGD is pursued today.
--- NOTE | 2022-10-25 15:07 | PM.PREOP ---
Pre-operative Note Interval Note History & Physical reviewed/Exam performed by Physician: Yes Changes to H&P: Yes ASA Class (for procedural sedation): III
--- NOTE | 2022-10-25 16:28 | PM.OP.EGD ---
Operative Date/Time/Diagnoses Date of procedure: 10/25/22 Time of procedure: 16:29 Pre-op diagnosis: Nausea vomiting substernal chest discomfort. Heartburn Post-op diagnosis: same Procedure & Clinicians Study performed: EGD with biopsies Same procedure as scheduled: Yes Indications: Nausea vomiting substernal chest discomfort. Heartburn Surgeon: Jarrett Teixeira Procedure Notes SCOAP/Timeout: Done Procedure in detail: After the risks and benefits were explained, written and verbal informed consent was obtained. The patient was brought into the procedure room and placed into the left lateral decubitus position. Please see anesthesia notes for sedation details. The scope was introduced into the mouth through the bite block and advanced under direct visualization to the 2nd portion of the duodenum. The scope was slowly withdrawn carefully examining the mucosa for any defects or lesions. Retroflexed views were accomplished in the stomach. The stomach was decompressed, the scope was then removed from the patient who tolerated the procedure well. Sedation minutes: 11 Complications: none Impression: 1. Duodenum: This was visually normal from the bulb through the 2nd portion. 2. Stomach: No gastric outlet obstruction no ulcers no mass lesions. The patient had extensive Srikanth's ulcerations all through the proximal body of the stomach and particularly associated with the neck of the hiatal hernia. Couple of these eroded areas were sampled with cold forceps for histopathology. 3. Esophagus: The squamocolumnar junction correlated with the top of the gastric folds. GEJ was at 34 cm from the incisors. The diaphragmatic pinchcock was at 40 cm from the incisors. There was no evidence of any acute erosive esophagitis. Endoscopic diagnosis 1. Large hiatal hernia 2. Extensive Srikanth's erosions/ulcers Post-procedure Plan for aftercare: 1. Await histopathology. 2. Surgical referral for hiatal hernia repair. Disposition: PACU
[2022-10-25 16:32] VITALS: BP 106/68; PULSE 72; RESP 18; O2SAT 97
[2022-10-25 16:37] VITALS: BP 100/69; BP 110/61; PULSE 58; PULSE 62; RESP 11; RESP 22; O2SAT 97
[2022-10-25 16:43] VITALS: BP 110/61; PULSE 56; RESP 17; TEMP 36.7; O2SAT 98
[2022-10-25 16:49] VITALS: BP 108/71; PULSE 56; RESP 16; O2SAT 98
== END 2022-10-25 17:05 | disposition home or self-care (01) ==
PROVIDERS: Family Provider Family Medicine; PCP Family Medicine; Referring Provider Internal Medicine Gastroenterology; Visit Provider Internal Medicine Gastroenterology
PROC: 0DJ08ZZ Inspection of Upper Intestinal Tract, Via Natural or Artificial Opening Endoscopic (ICD-10-PCS; CPT 43235; principal; 2022-10-25 15:30)
DX: K29.50 Unspecified chronic gastritis without bleeding (principal); K21.9 Gastro-esophageal reflux disease without esophagitis; K44.9 Diaphragmatic hernia without obstruction or gangrene; K25.9 Gastric ulcer, unspecified as acute or chronic, without hemorrhage or perforation
CPT/HCPCS: 43239; J2704

== ENCOUNTER → 2022-11-24 07:02 | Outpatient (CLI) | payer OTHER, SELFPAY ==
[2022-11-24 08:44] LABS: Creatinine Urine Random 136.3 mg/dL
[2022-11-24 08:48] LABS: Microalbumi Creatinin Ratio Ur 5.1 ug/mg CR (<30); Microalbumin Urine Random 0.7 mg/dL (0-1.6)
[2022-11-24 08:49] LABS: Alanine Aminotransferase 34 IU/L (<50); Albumin 4.3 g/dL (3.5-5.0); Albumin Globulin Ratio 1.4 (1.0-2.8); Alkaline Phosphatase 73 U/L (38-126); Aspartate Aminotransferase 41 IU/L (17-59); BUN Creatinine Ratio 18.3 (6-22); Bilirubin Total 0.3 mg/dL (0.2-1.3); Blood Urea Nitrogen 17 mg/dL (9-20); Calcium 9.3 mg/dL (8.4-10.2); Carbon Dioxide 28 mmol/L (22-32); Chloride 100 mmol/L (98-107); Cholesterol 131 mg/dL (140-199); Estimated Glomerular Filt Rate > 60 mL/min (>60); Globulin 3.1 g/dL (1.7-4.1); Glucose 92 mg/dL (80-110); HDL Cholesterol 46 mg/dL (40-60); LDL Cholesterol Calculated 74 mg/dL (<100); Potassium 4.8 mmol/L (3.4-5.1); Sodium 134 mmol/L (137-145); Total Protein 7.4 g/dL (6.3-8.2); Triglycerides 55 mg/dL (35-150)
[2022-11-25 04:27] LABS: x Labcorp Estim. Avg Glu (eAG) 108 mg/dL (.); x Labcorp Hemoglobin A1c 5.4 % (4.8-5.6)
[2022-11-29 15:00] LABS: HEMOLYSIS < 15 (0-50); Vitamin B12 443 pg/mL (239-931)
== END ==
PROVIDERS: Family Provider Family Medicine; PCP Family Medicine; Referring Provider Family Medicine; Visit Provider Family Medicine
DX: I10 Essential (primary) hypertension (principal); Z86.79 Personal history of other diseases of the circulatory system; G62.9 Polyneuropathy, unspecified
CPT/HCPCS: 36415; 80053; 80061; 82043; 82570; 82607; 83036

== ENCOUNTER → 2023-03-02 07:01 | Outpatient (CLI) | payer OTHER, SELFPAY ==
[2023-03-02 08:23] LABS: HEMOLYSIS < 15 (0-50); Iron 85 ug/dL (49-181)
[2023-03-02 08:33] LABS: Percent Iron Saturation 21 % (20-50); Total Iron Binding Capacity 412 ug/dL (261-462); Transferrin 303 mg/dL (206-381)
== END ==
PROVIDERS: Family Provider Family Medicine; PCP Family Medicine; Referring Provider Surgery; Visit Provider Surgery
DX: K21.9 Gastro-esophageal reflux disease without esophagitis (principal)
CPT/HCPCS: 36415; 83540; 83550

== ENCOUNTER → 2023-08-29 13:35 | Outpatient (CLI) | payer OTHER, SELFPAY ==
[2023-08-29 14:26] LABS: Hematocrit 38.3 % (41-53); Hemoglobin 13.1 g/dL (13.5-17.5); Mean Corpuscular HGB Conc 34.1 % (30-36); Mean Corpuscular Hemoglobin 30.8 PG (26-34); Mean Corpuscular Volume 90.3 fL (80-100); Platelet Count 193 X10^3/uL (150-400); Red Blood Cell Count 4.24 X10^6/uL (4.5-5.9); Red Cell Distribution Width 14.5 % (11.6-14.8); White Blood Cell Count 4.3 X10^3/uL (4.5-11.0)
[2023-08-29 14:45] LABS: HEMOLYSIS < 15 (0-50); Iron 93 ug/dL (49-181)
[2023-08-29 14:55] LABS: Percent Iron Saturation 27 % (20-50); Total Iron Binding Capacity 349 ug/dL (261-462); Transferrin 260 mg/dL (206-381)
== END ==
PROVIDERS: Family Provider Family Medicine; PCP Family Medicine; Referring Provider Surgery; Visit Provider Surgery
DX: K44.9 Diaphragmatic hernia without obstruction or gangrene (principal)
CPT/HCPCS: 36415; 83540; 83550; 85027

== ENCOUNTER → 2023-11-17 08:16 | Outpatient (CLI) | payer OTHER, SELFPAY ==
[2023-11-17 08:56] LABS: Add Manual Diff / Slide Review NO; Basophils Absolute Auto 0 /uL (0-100); Basophils Percent Auto 0.7 % (0-2); Eosinophils Absolute Auto 100 /uL (0-450); Eosinophils Percent Auto 3.3 % (2-4); Hematocrit 41.2 % (41-53); Lymphocytes Absolute Auto 1300 /uL (1100-4500); Lymphocytes Percent Auto 30.4 % (25-40); Mean Corpuscular HGB Conc 33.9 % (30-36); Mean Corpuscular Hemoglobin 31.5 PG (26-34); Mean Corpuscular Volume 92.9 fL (80-100); Monocytes Absolute Auto 600 /uL (0-900); Monocytes Percent Auto 13.3 % (3-14); Neutrophils Absolute Auto 2300 /uL (1500-7000); Neutrophils Percent Auto 52.3 % (50-75); Platelet Count 204 X10^3/uL (150-400); Red Blood Cell Count 4.43 X10^6/uL (4.5-5.9); Red Cell Distribution Width 13.8 % (11.6-14.8); White Blood Cell Count 4.4 X10^3/uL (4.5-11.0)
[2023-11-17 09:25] LABS: HEMOLYSIS < 15 (0-50); Iron 121 ug/dL (49-181)
[2023-11-17 09:27] LABS: Alanine Aminotransferase 38 IU/L (<50); Albumin 4.6 g/dL (3.5-5.0); Albumin Globulin Ratio 1.5 (1.0-2.8); Alkaline Phosphatase 74 U/L (38-126); Aspartate Aminotransferase 46 IU/L (17-59); BUN Creatinine Ratio 22.1 (6-22); Bilirubin Total 0.8 mg/dL (0.2-1.3); Blood Urea Nitrogen 19 mg/dL (9-20); Calcium 9.1 mg/dL (8.4-10.2); Carbon Dioxide 26 mmol/L (22-32); Chloride 104 mmol/L (98-107); Cholesterol 135 mg/dL (140-199); Estimated Glomerular Filt Rate > 60 mL/min (>60); Globulin 3.1 g/dL (1.7-4.1); Glucose 90 mg/dL (80-110); HDL Cholesterol 48 mg/dL (40-60); HEMOLYSIS < 15 (0-50); LDL Cholesterol Calculated 77 mg/dL (<100); Potassium 4.8 mmol/L (3.4-5.1); Sodium 136 mmol/L (137-145); Total Protein 7.7 g/dL (6.3-8.2); Triglycerides 51 mg/dL (35-150)
[2023-11-17 09:36] LABS: Percent Iron Saturation 34 % (20-50); Total Iron Binding Capacity 351 ug/dL (261-462); Transferrin 248 mg/dL (206-381)
[2023-11-17 09:44] LABS: Creatinine Urine Random 136.91 mg/dL
[2023-11-17 09:48] LABS: Microalbumin Urine Random 0.7 mg/dL (0-1.6)
== END ==
PROVIDERS: Family Provider Family Medicine; PCP Family Medicine; Referring Provider Family Medicine; Visit Provider Family Medicine
DX: D64.9 Anemia, unspecified (principal); I10 Essential (primary) hypertension
CPT/HCPCS: 36415; 80053; 80061; 82043; 82570; 83540; 83550; 85025

== ENCOUNTER → 2024-04-27 12:02 | Outpatient (CLI) | payer MEDICARE, OTHER, SELFPAY ==
--- NOTE | 2024-04-27 12:04 | DI.RAD.S_ITS ---
PROCEDURE: FL UPPER GI SERIES INDICATIONS: ASSESS HIATAL HERNIA COMPARISON: [facility], , [place] BARIUM SWALLOW, 06/02/2022, 12:47. FINDINGS: KUB: Preprocedural tube teller film demonstrates a normal bowel gas pattern. No suspicious abdominal calcifications. Visualized solid organ contours appear normal. Bony structures appear unremarkable. Sternotomy wires and mediastinal clips are present. Esophagus: Esophageal mucosa is normal on air-contrast views some tertiary contractions are present. No strictures, extrinsic mass effects, or diverticula. Small to moderate periesophageal hernia. No elicited gastroesophageal reflux. Stomach: The stomach is normally distensible, with normal rugal fold thickness. No mucosal masses or ulcers. Pylorus and duodenal bulb appear normal in morphology. Duodenal folds are normal in thickness as well. IMPRESSION: Small to moderate paraesophageal hernia. Approved by: Jake Canchola M.D. on 04/27/2024 at 15:14
== END ==
PROVIDERS: Family Provider Family Medicine; PCP Family Medicine; Referring Provider Surgery; Visit Provider Surgery
DX: K44.9 Diaphragmatic hernia without obstruction or gangrene (principal)
CPT/HCPCS: 74240

== ENCOUNTER → 2025-03-11 08:06 | Outpatient (CLI) | payer MEDICARE, OTHER, SELFPAY ==
[2025-03-11 08:58] LABS: Add Manual Diff / Slide Review NO; Hematocrit 41.2 % (41-53); Hemoglobin 14.4 g/dL (13.5-17.5); Lymphocytes Absolute Auto 1700 /uL (1100-4500); Mean Corpuscular HGB Conc 35.0 % (30-36); Mean Corpuscular Hemoglobin 32.3 PG (26-34); Mean Corpuscular Volume 92.2 fL (80-100); Platelet Count 164 X10^3/uL (150-400)
[2025-03-11 09:32] LABS: HEMOLYSIS < 15 (0-50); Iron 112 ug/dL (49-181)
[2025-03-11 09:36] LABS: Alanine Aminotransferase 45 IU/L (<50); Albumin 4.6 g/dL (3.5-5.0); Albumin Globulin Ratio 1.4 (1.0-2.8); Alkaline Phosphatase 83 U/L (38-126); Blood Urea Nitrogen 17 mg/dL (9-20); Calcium 9.7 mg/dL (8.4-10.2); Carbon Dioxide 24 mmol/L (22-32); Chloride 101 mmol/L (98-107); Cholesterol 145 mg/dL (140-199); Estimated Glomerular Filt Rate > 60 mL/min (>60); Globulin 3.2 g/dL (1.7-4.1); Glucose 92 mg/dL (70-99); HDL Cholesterol 54 mg/dL (40-60); HEMOLYSIS < 15 (0-50); Potassium 5.0 mmol/L (3.4-5.1); Sodium 135 mmol/L (137-145); Total Protein 7.8 g/dL (6.3-8.2); Triglycerides 57 mg/dL (35-150)
[2025-03-11 09:43] LABS: Percent Iron Saturation 33 % (20-50); Total Iron Binding Capacity 342 ug/dL (261-462); Transferrin 290 mg/dL (206-381)
== END ==
PROVIDERS: Family Provider Family Medicine; PCP Family Medicine; Referring Provider Family Medicine; Visit Provider Family Medicine
DX: I50.22 Chronic systolic (congestive) heart failure (principal); I10 Essential (primary) hypertension; D64.9 Anemia, unspecified; E87.1 Hypo-osmolality and hyponatremia; I25.5 Ischemic cardiomyopathy; K43.2 Incisional hernia without obstruction or gangrene; I25.2 Old myocardial infarction
CPT/HCPCS: 36415; 80053; 80061; 82043; 82570; 83540; 83550; 85025

== ENCOUNTER → 2025-04-12 12:06 | Outpatient (CLI) | payer MEDICARE, OTHER, SELFPAY ==
--- NOTE | 2025-04-12 12:08 | DI.RAD.S_ITS ---
PROCEDURE: FL UPPER GI SERIES INDICATIONS: hiatal hernia COMPARISON: [facility], , [place] UPPER GI SERIES, 04/27/2024, 12:34. FINDINGS: KUB: Preprocedural tugboat engineer film demonstrates a normal bowel gas pattern. No suspicious abdominal calcifications. Visualized solid organ contours appear normal. Bony structures appear unremarkable. Esophagus: Esophageal mucosa is normal on air-contrast views. On single- contrast views, there is normal esophageal peristalsis. No strictures, extrinsic mass effects, or diverticula. A large hiatal hernia with mildly spontaneous gastroesophageal reflux. There is normal transit of a calibrated barium tablet through the esophagus, with a delay inside of hernia before advancing into remaining stomach. Stomach: The stomach is normally distensible, with normal rugal fold thickness. No mucosal masses or ulcers. Pylorus and duodenal bulb appear normal in morphology. Duodenal folds are normal in thickness as well. IMPRESSION: Large hiatal hernia, grown in size compared to prior exam 04/27/2024. Mild spontaneous gastroesophageal reflux. Delay of calibrated barium tablet inside hiatal hernia before advancing to remaining stomach. Dictated by: Sil Contreras [facility] Interpreted: Mitch Frias MD on 04/12/2025 at 14:04 Transcribed by: BRENTON on 04/12/2025 at 14:16 Approved by: Mitch Frias M.D. on 04/17/2025 at 12:51
== END ==
LOC: RAD 12:07
PROVIDERS: Family Provider Family Medicine; PCP Family Medicine; Referring Provider Surgery; Visit Provider Surgery
DX: K44.9 Diaphragmatic hernia without obstruction or gangrene (principal); K21.9 Gastro-esophageal reflux disease without esophagitis
CPT/HCPCS: 74240